=== PATIENT | male | born 1940 | race Caucasian/White ===

== ENCOUNTER 2016-08-17 06:06 | Inpatient (IN) ==
[2016-08-14 14:40] LABS: Basophils # (Auto) 0 K/mcL (0.0-0.3); Basophils % (Auto) 0.4 % (0.0-2.0); Eosinophils # (Auto) 0.3 K/mcL (0.0-0.7); Eosinophils % (Auto) 3.1 % (0.0-7.0); Granulocytes % (Auto) 78.4 % (38.0-78.0); Lymphocytes # (Auto) 0.9 K/mcL (1.5-4.8); Lymphocytes % (Auto) 11.2 % (15.5-49.0); Mean Cell Volume 92.7 fL (80.0-100.0); Mean Corpuscular HGB Conc 32.8 g/dL (31.0-36.0); Mean Corpuscular Hemoglobin 30.4 pg (26.0-34.0); Monocytes # (Auto) 0.6 K/mcL (0.1-0.9); Monocytes % (Auto) 6.9 % (1.0-12.0); Platelet Count 197 K/mcL (140-440); RBC 4.55 M/mcL (4.50-5.90); Red Cell Distribution Width 15.8 % (11.5-14.5)
[2016-08-15 16:45] LABS: Appearance,Urine CLEAR; Bilirubin,Urine NEG (NEG); Color,Urine STRAW; Glucose,Urine (UA) NEGATIVE (NEG); Leukocyte Esterase,Urine NEG /uL (NEG); Nitrate,Urine NEG (NEG); Protein,Urine NEG (NEG); Specific Gravity,Urine 1.006 (1.000-1.035); Urine Blood NEG mg/dL (<0.03); Urobilinogen,Urine NEG (NEG)
[2016-08-15 18:44] LABS: Blood Urea Nitrogen 16 mg/dl (8-23)
[~2016-08-17 06:06] MED LIST: ACETAMINOPHEN 500 MG TABLET PO SCH; CELECOXIB 200 MG CAPSULE PO SCH; PREGABALIN 150 MG CAPSULE PO SCH; ceFAZolin 1 GM VIAL IV SCH; oxyCODONE 10 MG TAB.ER.12H PO SCH
[2016-08-17] MEDS ORDERED: MIDAZOLAM 5 MG/5 ML VIAL IV ONE (09:05)
[2016-08-17] MEDS ORDERED: KETAMINE 100 MG/ML ML IV ONE (09:05)
[2016-08-17] MEDS ORDERED: ONDANSETRON 4 MG/2 ML VIAL IV ONE (09:05)
[2016-08-17] MEDS ORDERED: PROPOFOL 200 MG/20 ML VIAL IV ONE (09:05)
[2016-08-17] MEDS ORDERED: PHENYLEPHRINE 10 MG/ML VIAL IJ ONE (09:05)
[2016-08-17] MEDS ORDERED: GLYCOPYRROLATE 0.2 MG/ML VIAL IV ONE (09:05)
[2016-08-17] MEDS ORDERED: LIDOCAINE HCL/PF 100 MG/5 ML SYRINGE IV ONE (09:05)
[2016-08-17] MEDS ORDERED: ATROPINE SULFATE 0.4 MG/ML VIAL IV ONE (09:05)
[2016-08-17] MEDS ORDERED: TRANEXAMIC ACID 1,000 MG/10 ML VIAL IV ONE (09:05)
[2016-08-17] MEDS ORDERED: GENTAMICIN SULFATE 800 MG/20 ML VIAL IR ONE (09:30)
[2016-08-17] MEDS ORDERED: ACETAMINOPHEN 1,000 MG/100 ML BOTTLE IV SCH (12:00)
[2016-08-17] MEDS ORDERED: IPRATROPIUM/ALBUTEROL 3 ML AMPUL.NEB NEB PRN (12:17)
[2016-08-17] MEDS ORDERED: HYDROmorphone 2 MG/ML SYRINGE IV PRN ×2 (12:17→13:36)
[2016-08-17] MEDS ORDERED: BENZOCAINE/MENTHOL 1 LOZENGE PO PRN (12:17)
[2016-08-17] MEDS ORDERED: ONDANSETRON 4 MG/2 ML VIAL IV PRN ×2 (12:17→13:36)
[2016-08-17] MEDS ORDERED: METHOCARBAMOL 1,000 MG/10 ML VIAL IV PRN (12:17)
[2016-08-17] MEDS ORDERED: MEPERIDINE 25 MG/ML SYRINGE IV PRN (12:17)
[2016-08-17] MEDS ORDERED: fentaNYL 100 MCG/2 ML VIAL IV PRN (12:17)
[2016-08-17] MEDS ORDERED: MAGNESIUM HYDROXIDE 30 ML ORAL.SUSP PO PRN (13:36)
[2016-08-17] MEDS ORDERED: KETOROLAC 15 MG/ML VIAL IV PRN (13:36)
[2016-08-17] MEDS ORDERED: BISACODYL 10 MG SUPP.RECT PR PRN (13:36)
[2016-08-17] MEDS ORDERED: POLYETHYLENE GLYCOL 3350 17 GM PACKET PO PRN (13:36)
[2016-08-17] MEDS ORDERED: TRANEXAMIC ACID 1,000 MG/10 ML VIAL IV SCH (13:36)
[2016-08-17] MEDS ORDERED: FLEETS ADULT ENEMA PR PRN (13:36)
[2016-08-17] MEDS ORDERED: ACETAMINOPHEN 325 MG TABLET PO PRN (13:36)
--- NOTE | 2016-08-17 13:42 | Brief Operative Note ---
Date of procedure: 08/17/16 Pre-op diagnosis: right hip loosening femoral cement mantal Post-op diagnosis: same Procedure: right total hip revision of the femoral stem and head none Grafts/Implants: Yes Anesthesia: GETA Findings: severe loosening Complications: none Complications Description: 08/17/16 13:42 none Surgeon: Rafy Zhang Metal Moulder: Jose L Brito Estimated blood loss (cc): 300 Specimens Removed/Pathology: none sent Condition: stable Disposition: PACU
--- NOTE | 2016-08-17 13:56 | Operative Note ---
DATE OF OPERATION: 08/17/2016 PREOPERATIVE DIAGNOSIS: Right hip femoral pain with loosened stem. POSTOPERATIVE DIAGNOSIS: Right hip femoral pain with loosened stem with the addition of some proximal cement debonding. PROCEDURE: Right femoral stem revision with neck and head length revision. SURGEON: Rafy Zhang MD PERSONAL ASSISTANT: Jose L Brito PA-C ANESTHESIA: General LMA anesthesia. COMPLICATIONS: None. ESTIMATED BLOOD LOSS: IMPLANTS: Anabaptist modular size 18 conical stem with a proximal body of 0, height with a +12 neck length with outer body 40 mm. DESCRIPTION OF PROCEDURE: Patient was brought to the operating room and put to sleep with general LMA anesthesia. Once asleep he was turned into a left lateral position. We confirmed the operative site and Kevin positioner was placed. We then made an incision through the prior scar and extended this distally and made this an incision through the IT and through the gluteus filemon, exposed the joint and released the capsule posteriorly, extended the incision distally over the osteotomy site. We then dislocated the hip and the stem was frankly loose. The stem was removed as well as the femoral head and ball. The cup was very stable. There were no signs of infection; no purulence. We irrigated thoroughly and then started to remove the cement. The distal portion of the cement was very difficult to remove because the plug distally was about 3 inches in total thickness. Drill bit was used. We then made an osteotomy that extended down to the distal tip of the cement mantle. We then removed the plug in the cement mantle. We then reamed up to the size 12. We implanted a 12 advent modular. We first tried a [address] was [address] too short. We then irrigated thoroughly. We placed our 18 advent modular stem, cabled the osteotomy site, trialed the proximal cone bodies. A 0 +10 were all trialed, +10 was about 10 mm too long with multiple images. We then trialed 0 cone conical proximal body with a +12 neck length. This was stable. We placed about 20 degrees of version into the stem. This was locked into place. We then put a +12 neck length and dual mobility ball. This was reduced, irrigated thoroughly. We closed the fascial layer with #2 Ethibond, closed the deeper layer of Luciana's fascia with #1 Vicryl and closed the skin with 2-0 Vicryl and then omero. The patient tolerated this well. Thorough irrigation performed. There was no complication. Total surgery time was about 3.5 hours. REJI:bk Job ID: [id number] Doc ID: [id number] Rafy Zhang MD
[2016-08-17] MEDS: LACTATED RINGERS 1,000 ML IV SCH ×2 (14:37→14:38)
--- NOTE | 2016-08-17 15:05 | XRay Report ---
HISTORY: Reason for Exam: post-op Total Hip FINDINGS: There is a well-positioned right total hip prosthesis. This has been revised since the prior exam done on 01/23/16. There is a focal cortical fracture along the medial side of the proximal shaft of the femur. The bone fragment is 0.6 x 3.4 cm in size. There are cerclage wires around the femur, above the level of the fracture. Patient has a pre-existing left hip prosthesis which appears normal. IMPRESSION: Well-positioned right hip prosthesis Interpreted and Authenticated by: Anastacio Patel 08/17/16
[2016-08-17] MEDS ORDERED: HETASTARCH 6% 30 GM/500 ML BAG IV ONE ×2 (15:32→15:34)
[2016-08-17] MEDS: 0.9 % SODIUM CHLORIDE 10 ML SYRINGE IV SCH ×2 (15:41→21:00)
[2016-08-17] MEDS: TORSEMIDE 10 MG TABLET PO SCH (15:52)
[2016-08-17] MEDS: ceFAZolin 1 GM VIAL IV SCH (17:07)
[2016-08-17] MEDS: POTASSIUM CHLORIDE 10 MEQ TABLET PO SCH (17:08)
[2016-08-17] MEDS: 0.45 % SODIUM CHLORIDE 1,000 ML IV SCH (17:56)
[2016-08-17] MEDS: ASPIRIN 325 MG ENTERIC COATED TABLET PO SCH (20:46)
[2016-08-17] MEDS: DOCUSATE SODIUM 100 MG CAPSULE PO SCH (20:46)
[2016-08-17] MEDS: SENNOSIDES 1 TABLET PO SCH (20:47)
[2016-08-17] MEDS: oxyCODONE 10 MG TAB.ER.12H PO SCH (21:00)
[2016-08-17] MEDS ORDERED: TEMAZEPAM 15 MG CAPSULE PO PRN (21:00)
[2016-08-17] MEDS: HYDROcodone/APAP 10/325MG TABLET PO PRN (22:28)
[2016-08-18] MEDS: ceFAZolin 1 GM VIAL IV SCH (00:58)
[2016-08-18] MEDS: 0.45 % SODIUM CHLORIDE 1,000 ML IV SCH ×3 (03:34→21:06)
[2016-08-18] MEDS: HYDROcodone/APAP 10/325MG TABLET PO PRN ×2 (03:52→12:32)
[2016-08-18] MEDS: 0.9 % SODIUM CHLORIDE 10 ML SYRINGE IV SCH ×3 (05:56→23:01)
--- NOTE | 2016-08-18 06:57 | Orthopedic Progress Note ---
Subjective Patient information: Note initiated : 08/18/16 at 6:56 am Service Date, if different from initiated Date: [] Patient: Jarred Villafana 75 y/o M admitted on 08/17/16 for Right Total Hip Arthroplasty Revision of Femoral . Chief Complaint: [Pt is stable this morning on post operative day 1 without any significant concerns or complaints. Patients vital signs have remained stable. Patients dressing is dry and exhibits a grossly intact neurovascular and neuromotor exam. Patients 10 point ROS is otherwise negative. ] Objective Vital signs: Vital Signs Temp Pulse Pulse Resp BP BP Pulse Ox 08/18/16 05:45 92 08/18/16 03:43 94 08/18/16 03:42 98.2 F 66 16 108/61 94 08/18/16 02:00 93 08/18/16 00:00 93 08/17/16 23:34 97.9 F 68 20 119/58 93 08/17/16 22:00 93 08/17/16 20:00 94 08/17/16 19:45 64 18 107/71 94 08/17/16 19:15 97.0 F L 61 18 97/57 91 08/17/16 18:22 120/74 100 08/17/16 17:18 55 L 20 118/69 97 08/17/16 17:17 96 08/17/16 16:55 121/76 99 08/17/16 16:30 123/76 95 08/17/16 16:25 99 08/17/16 16:20 109/56 08/17/16 16:15 110/68 99 08/17/16 16:10 112/67 99 08/17/16 16:06 106/62 100 08/17/16 16:05 99/56 98 08/17/16 16:00 107/53 99 08/17/16 15:55 94/59 100 08/17/16 15:40 89/52 100 08/17/16 15:25 121/75 91 08/17/16 14:44 52 L 19 97/55 96 08/17/16 14:29 53 L 20 110/60 97 08/17/16 14:10 56 L 18 135/69 95 08/17/16 13:53 97.3 F L 56 L 16 160/79 100 Intake and Output 08/17/16 08/18/16 08/18/16 21:59 05:59 13:59 Intake Total 513 / 513 2043 / 2043 Output Total 600 / 600 Balance 513 / 513 1443 / 1443 Intake: IV 513 / 513 963 / 963 Sodium Chloride 0.45% 1, 963 / 963 000 ml @ 100 mls/hr IV . Q10H [facility] Rx#:[id number] HESPAN 6% 30 gm In 500 ml 500 / 500 As IV .STK-MED ONE Rx#: [id number] Oral 1080 / 1080 Output: Void Amount 600 / 600 Straight 600 / 600 Other: Weight 352 lb Intake & Output: Intake & Output 08/17/16 08/18/16 08/18/16 21:59 05:59 13:59 Intake Total 513 / 513 2043 / 2043 Output Total 600 / 600 Balance 513 / 513 1443 / 1443 Weight 352 lb Intake: IV 513 / 513 963 / 963 Sodium Chloride 0.45% 1, 963 / 963 000 ml @ 100 mls/hr IV . Q10H [facility] Rx#:[id number] HESPAN 6% 30 gm In 500 ml 500 / 500 As IV .STK-MED ONE Rx#: [id number] Oral 1080 / 1080 Output: Void Amount 600 / 600 Straight 600 / 600 Incision: Yes healing Incision clean and dry: Yes Dressing: Yes clean, Yes dry Weight bearing status: as tolerated Neurological exam IM: Yes motor sensory intact, Yes neurovascular intact Extremities exam IM: Yes Foot pink and warm, Yes neurovascular intact - Labs CBC & BMP: 08/18/16 04:05 08/15/16 15:15 Labs: Orthopedic Labs 08/14/16 13:58 PT 12.7 INR 0.9 APTT 08/18/16 08/14/16 04:05 13:58 Hgb 13.8 Hct 31.4 L 42.2 Assessment and Plan (1) Hx of total hip arthroplasty Patient has been educated regarding wound care and dressings, follow up recommendations, and medication use. We will f/u with the patient within 2-3 weeks for wound check. Pt will be discharged likely Saturday with Home health. Status: Acute
--- NOTE | 2016-08-18 07:01 | Discharge Summary ---
Ortho Discharge - ANY - Patient Instructions Diet: Regular Diet Activity: activity as tolerated, weight bearing as tolerated Total Hip Protocol: Follow activity instructions as provided by Physical Therapy. Dressing Care: May shower in 3 days, Aquacel Ag - leave on for 5 days - Problem Maintenance (1) Hx of total hip arthroplasty Status: Acute - Follow Up Plan Disposition: Home Health Service Prognosis: Good Rehab Potential: Good I certify that the patient requires SNF services: No (However pt will require Home Health Services) Overall status at discharge: patient is progressing back to baseline - Orders For Discharge Prescriptions: RX: Aspirin [Ecotrin] 325 mg PO BID #60 tab.ec RX: Docusate Sodium [Colace] 100 mg PO BID #60 capsule RX: HYDROcodone/APAP 10/325MG [[place] 10/325Mg] 1 - 2 tab PO Q4HP PRN #75 tablet PRN Reason: Pain RX: Tamsulosin [Flomax] 0.4 mg PO DAILY #30 capsule
[2016-08-18] MEDS: TORSEMIDE 10 MG TABLET PO SCH ×2 (08:05→16:51)
[2016-08-18] MEDS: TAMSULOSIN 0.4 MG CAPSULE PO SCH (08:05)
[2016-08-18] MEDS: POTASSIUM CHLORIDE 10 MEQ TABLET PO SCH ×2 (08:06→17:34)
[2016-08-18] MEDS: ASPIRIN 325 MG ENTERIC COATED TABLET PO SCH ×2 (09:28→20:28)
[2016-08-18] MEDS: METOPROLOL SUCCINATE 50 MG TAB.XL.24H PO SCH (09:28)
[2016-08-18] MEDS: DOCUSATE SODIUM 100 MG CAPSULE PO SCH ×2 (09:29→20:28)
[2016-08-18] MEDS: oxyCODONE 10 MG TAB.ER.12H PO SCH ×2 (09:29→20:29)
[2016-08-18] MEDS: LOSARTAN 50 MG TABLET PO SCH (09:30)
[2016-08-18] MEDS: SENNOSIDES 1 TABLET PO SCH (21:06)
[2016-08-19] MEDS: HYDROcodone/APAP 10/325MG TABLET PO PRN ×2 (01:24→08:26)
[2016-08-19] MEDS: 0.45 % SODIUM CHLORIDE 1,000 ML IV SCH ×2 (05:18→16:11)
[2016-08-19] MEDS: 0.9 % SODIUM CHLORIDE 10 ML SYRINGE IV SCH ×3 (05:43→20:47)
--- NOTE | 2016-08-19 08:15 | Orthopedic Progress Note ---
Subjective Patient information: Note initiated : 08/19/16 at 8:13 am Service Date, if different from initiated Date: [] Patient: Jarred Villafana 75 y/o M admitted on 08/17/16 for Right Total Hip Arthroplasty Revision of Femoral . Chief Complaint: [less pain and no nausea and vomiting] Objective Vital signs: Vital Signs Temp Pulse Resp BP BP Pulse Ox 08/19/16 07:13 98.6 F 87 22 146/55 93 08/19/16 05:42 96 08/19/16 04:00 98.7 F 88 22 111/72 96 08/19/16 00:00 124/65 94 08/18/16 23:30 107/61 08/18/16 22:58 99.3 F 80 16 92/47 95 08/18/16 22:00 94 08/18/16 21:21 93 08/18/16 20:00 98.7 F 75 24 118/61 92 08/18/16 18:14 91 08/18/16 16:50 98.2 F 75 20 136/53 92 08/18/16 14:44 91 08/18/16 13:20 92 08/18/16 12:00 98.6 F 71 16 125/56 95 08/18/16 11:02 96 08/18/16 09:47 94 08/18/16 09:46 94 08/18/16 09:31 62 133/61 94 Intake and Output 08/18/16 08/19/16 08/19/16 21:59 05:59 13:59 Intake Total 550 / 550 800 / 800 Output Total 525 / 525 900 / 900 Balance -100 / -100 Intake: Oral 550 / 550 800 / 800 Output: Urine Catheter Amount 525 / 525 900 / 900 Other: Meal Dinner Percent of Meal Consumed 100% Intake & Output: Intake & Output 08/18/16 08/19/16 08/19/16 21:59 05:59 13:59 Intake Total 550 / 550 800 / 800 Output Total 525 / 525 900 / 900 Balance -100 / -100 Intake: Oral 550 / 550 800 / 800 Output: Urine Catheter Amount 525 / 525 900 / 900 Other: Meal Dinner Percent of Meal Consumed 100% Incision: Yes healing Incision clean and dry: Yes Dressing: Yes clean Weight bearing status: full Neurological exam IM: Yes oriented X3, Yes neurovascular intact Extremities exam IM: Yes Foot pink and warm (d/c tomorrow), Yes neurovascular intact - Labs CBC & BMP: 08/18/16 04:05 08/15/16 15:15 Labs: Orthopedic Labs 08/14/16 13:58 PT 12.7 INR 0.9 APTT 08/18/16 08/14/16 04:05 13:58 Hgb 13.8 Hct 31.4 L 42.2
[2016-08-19] MEDS: TAMSULOSIN 0.4 MG CAPSULE PO SCH (08:25)
[2016-08-19] MEDS: LOSARTAN 50 MG TABLET PO SCH (08:25)
[2016-08-19] MEDS: POTASSIUM CHLORIDE 10 MEQ TABLET PO SCH ×2 (08:26→17:30)
[2016-08-19] MEDS: TORSEMIDE 10 MG TABLET PO SCH ×2 (08:27→16:00)
[2016-08-19] MEDS: METOPROLOL SUCCINATE 50 MG TAB.XL.24H PO SCH (08:27)
[2016-08-19] MEDS: ASPIRIN 325 MG ENTERIC COATED TABLET PO SCH ×2 (09:21→20:47)
[2016-08-19] MEDS: DOCUSATE SODIUM 100 MG CAPSULE PO SCH ×2 (09:21→20:46)
[2016-08-19] MEDS: SULFAMETHOXAZOLE/TRIMETHOPRIM 1 TABLET PO SCH (10:31)
[2016-08-19] MEDS: BENZOCAINE/MENTHOL 1 LOZENGE PO PRN ×2 (17:26→19:12)
[2016-08-19] MEDS: SENNOSIDES 1 TABLET PO SCH (20:47)
[2016-08-20] MEDS: 0.45 % SODIUM CHLORIDE 1,000 ML IV SCH ×2 (00:13→10:19)
[2016-08-20] MEDS: BENZOCAINE/MENTHOL 1 LOZENGE PO PRN (03:42)
[2016-08-20] MEDS: 0.9 % SODIUM CHLORIDE 10 ML SYRINGE IV SCH ×2 (05:24→14:32)
[2016-08-20] MEDS: TORSEMIDE 10 MG TABLET PO SCH (07:37)
[2016-08-20] MEDS: POTASSIUM CHLORIDE 10 MEQ TABLET PO SCH (07:37)
--- NOTE | 2016-08-20 07:58 | Discharge Summary ---
Ortho Discharge - ANY - Patient Instructions Diet: Regular Diet Activity: activity as tolerated, weight bearing as tolerated Total Hip Protocol: Follow activity instructions as provided by Physical Therapy. Dressing Care: Aquacel Ag - leave on for 5 days Patient Education: Hydrocodone/Acetaminophen (By mouth), Total Hip Replacement (DC) Additional Instructions: Discharge Instructions: Do the exercises at home that physical therapy gave you. Home health will contact you to set up your initial visit. If you don't hear from them by the morning after your discharge, please contact Case management at [phone] Take your prescription to supervisor tunnel heading any medication or equipment (such as walker, crutches, toilet riser or C.P.M.) Wear comfortable clothing for your physical therapy. Activity as tolerated. No torso twisting. Weight bearing as tolerated. May shower in 3 days. If you have the Aquacel Ag dressing, leave in place for 5 days then remove. If dressing becomes soiled (turns black), remove and use gauze 4x4 dressing and silvasorb ointment and change daily. Keep incision clean and dry. To avoid constipation while taking any narcotic pain medication, take an over the counter stool softener/laxative. Return to ER for fever/chills, nausea and/or vomiting, shortness of breath, uncontrolled pain, signs of infection, unable to go to the bathroom, bleeding, redness, swelling Use your Cryocuff or ice packs as directed, on for 20 minutes at a time throughout the day. This and elevation will help with pain and swelling. Your prescriptions are with your discharge information. Some medications were electronically transmitted to your pharmacy of choice. - Problem Maintenance (1) Hx of total hip arthroplasty Status: Acute - Follow Up Plan Disposition: Xfer SNF Prognosis: Good Rehab Potential: Good I certify that the patient requires SNF services: Yes Overall status at discharge: patient is progressing back to baseline - Orders For Discharge Prescriptions: Aspirin [Ecotrin] 325 mg PO BID #60 tab.ec Docusate Sodium [Colace] 100 mg PO BID #60 capsule HYDROcodone/APAP 10/325MG [[place] 10/325Mg] 1 - 2 tab PO Q4HP PRN #75 tablet PRN Reason: Pain Tamsulosin [Flomax] 0.4 mg PO DAILY #30 capsule Additional Discharge Orders: Physical Therapy at Discharge - ANY Location: Determined By Patient Toilet Riser Discharge Order Location: Determined By Patient Walker Location: Determined By Patient
[2016-08-20] MEDS: SULFAMETHOXAZOLE/TRIMETHOPRIM 1 TABLET PO SCH (09:40)
[2016-08-20] MEDS: DOCUSATE SODIUM 100 MG CAPSULE PO SCH (09:40)
[2016-08-20] MEDS: METOPROLOL SUCCINATE 50 MG TAB.XL.24H PO SCH (09:41)
[2016-08-20] MEDS: TAMSULOSIN 0.4 MG CAPSULE PO SCH (09:41)
[2016-08-20] MEDS: ASPIRIN 325 MG ENTERIC COATED TABLET PO SCH (09:41)
[2016-08-20] MEDS: LOSARTAN 50 MG TABLET PO SCH (09:41)
[2016-08-20] MEDS: HYDROcodone/APAP 10/325MG TABLET PO PRN (14:32)
== END 2016-08-20 14:30 ==
LOC: MEDSUR 06:06
PROVIDERS: ADMIT Orthopaedic Surgery; ATTEND Orthopaedic Surgery

== ENCOUNTER 2020-04-01 14:44 | Inpatient (IN) ==
--- NOTE | 2020-04-01 15:27 | Emergency Department Note ---
Extremity Problem HPI General Chief complaint: Extremity Problem,Nontraumatic Stated complaint: unheeling wounds Time Seen by Provider: 04/01/20 14:51 Source: patient and RN notes reviewed Mode of arrival: ambulatory Limitations: no limitations History of Present Illness HPI Narrative: Narrative: 79-year-old male patient referred to the emergency department from the wound care clinic for evaluation and potential admission to the hospital. Patient is being followed by the nuclear weapons mechanical specialist (Dr. Wharton) for nonhealing calcaneal. Patient mentions these have been present for over 3 weeks. The nuclear weapons mechanical specialist is tried multiple outpatient modalities to help clear these. Most recently has been using debridement as well as topical antibiotics. A review of the wound care documentation indicates that the patient is for distinct wounds to his lower extremities. The greatest detail would be his calcaneal ulcerations. The right calcaneal wound has grown from 1.8 x 2.6 x 0.1 measured on 03/25 to 2.5 x 2.5 x 0.1. The left calcaneal wound has grown considerably from 0.5 x 0.9 x 0.05 on 03/25 to 4.5 x 5.5 x 0.3. The nuclear weapons mechanical specialist is concerned if the patient treatment and likely would benefit from a standing facility for aggressive surgical management. Upon arrival to the emergency department, patient denies considerable pain. He does mention that his heels began to ache when he is up walking around for extended period of time. He denies history of diabetes. He does mention a hi story of chronic lymphedema. There is question of ongoing peripheral vascular disease. Patient denies history of DVT. ROS: Denies systemic illness, fever, sweats, chills. Denies runny nose, sinus congestion, or cough. Denies shortness of breath. Denies retrosternal chest pain or palpitations. Denies abdominal pain, nausea, vomiting, or diarrhea. Denies dysuria, hematuria, urinary frequency, or urinary urgency. Denies generalized or focal weakness. Related Data Previous Rx's Medication Instructions Recorded potassium chloride 10 mEq See Rx Instructions .ROUTE 02/10/20 tablet,extended release .COMPLEX #180 tab metoprolol succinate 50 mg 50 mg PO QDAY #90 tab 02/17/20 tablet,extended release 24 hr torsemide 20 mg tablet 20 mg PO BID #180 tab 10/28/20 Allergies Allergy/AdvReac Type Severity Reaction Status Date / Time doxycycline Allergy Mild Itching Verified 02/17/20 10:41 Review of Systems ROS ROS Narrative: Narrative: All systems ED: reviewed and negative except as stated. PFSH Narrative Patient History Narrative: Narrative: Medical/Surgical/Family History All Active Problems (Updated 04/01/20 @ 17:55 by Alessandro Smiley PA-C) Cellulitis (Acute) Non-healing ulcer of right foot (Acute) Non-healing ulcer of left foot (Acute) Lymphedema (Acute) Medicare annual wellness visit, subsequent (Acute) Influenza vaccine refused (Chronic) Aortic valve calcification (Chronic) Aortic stenosis (Chronic) Hx of total hip arthroplasty (Acute) HTN (hypertension) (Acute) Bilateral lower extremity edema (Acute) Medical History (Updated 04/01/20 @ 17:55 by Alessandro Smiley PA-C) Lymphedema (Acute) Medicare annual wellness visit, subsequent (Acute) Non-healing ulcer of left foot (Acute) Non-healing ulcer of right foot (Acute) UTI (urinary tract infection) (Acute) Surgical History H/O knee surgery (Acute) right knee H/O neck surgery (Acute) #4,#5 History of carpal tunnel surgery (Acute) Left hand History of colonoscopy (Chronic 08/02/17) Hx of total hip arthroplasty (Acute) Hx of transurethral resection of prostate (Acute) Social History Smoking Status: Former smoker Alcohol Intake Frequency: 0-2 drinks per day Substance Use: does not use Exam Narrative Narrative: Narrative: General Limitations: no limitations General appearance: Present other (Well-developed, well-nourished, morbidly obese 79-year-old male patient sitting upright in no acute distress. He is afebrile, hypertensive blood pressure 175/67, his other vital signs are normal.) Head Head: Present normocephalic Eye Eye: Present normal appearance, PERRL and EOMI; Absent scleral icterus and conjunctival injection ENT ENT: Present normal oropharynx and mucous membranes moist Neck Neck: Present trachea midline; Absent lymphadenopathy and thyromegaly Chest Chest: Present symmetric chest wall rise Respiratory Respiratory: Present normal lung sounds bilaterally; Absent respiratory distress, wheezes, stridor, accessory muscle use and prolonged expiratory phase Cardiovascular Cardiovascular: Present regular rate and normal rhythm; Absent systolic murmur and diastolic murmur Adbominal Abdominal: Present soft; Absent distention, tenderness, guarding, rebound, rigidity, organomegaly and mass Extremities Extremities: Present full ROM, normal capillary refill and pedal edema (+12 pitting edema appears to extend up into the knees.); Absent normal inspection (Both lower legs have been dressed by the wound care center with Kerlix and Bjorn wraps. These were noted to be clean and dry. That he dressings were left in place. Feet are royal red. Some exposed skin is scaly in appearance.), tenderness and calf tenderness Back Back: Present normal inspection and full ROM Neurological Neurological: Present alert, oriented X3, normal gait (Ambulates with a slow, shuffling gait using 2 canes.) and motor sensory deficit (Some decrease sensation to both feet.) Psychiatric Psychiatric: Present normal affect and normal mood Skin Skin: Present warm (WNL), dry and normal color Course Course Course Narrative: Patient was referred to the emergency department from the wound care clinic for further evaluation and possible admission to the hospital. She had treatment rendered at the wound care clinic and those dressings were kept in place. I am going to order some screening laboratory studies and repeat radiographs of both the patient's feet looking for evidence of osteomyelitis. Patient is not in considerable pain and does not require aggressive analgesia. Patient is afebrile and nonseptic appearing. We will wait for the results of testing prior to initiating any antibiotic therapy. Reevaluation(s) Reevaluation #1: A review the patient's diagnostics of the following: CBC WBC 10.7, RBC 4.39, hemoglobin 13.4, mag 40.9, platelets 254. Lactic acid 0.9. CMP chloride 95, glucose 112, all others normal limits. Procalcitonin 0.12. Radiographs of both feet showing no plain film evidence for osteomyelitis. Radiologist does mention bilateral metatarsus primus versus and hallux valgus deformities. There is also bilateral hammertoe deformities. Upon reevaluation patient is resting comfortably on emergency room gurney. After reviewing all the data I reached out to our hospitalist (Dr. Patten) about possibly admitting this patient for nonhealing bilateral skin ulcers. Time: 17:27 Reevaluation #2: The hospitalist (Dr. Patten) make contact with my collaborating physician (Dr. Cervantes) and they discussed the case at length. At this time Dr. Patten did mention he would like to admit the patient here for observation. During which time the nuclear weapons mechanical specialist (Dr. Wharton) will consult in for wound management. I discussed antimicrobial therapy with my collaborating physician at this time is decided to start the patient on Rocephin 2 g IV. Knowing the treatment plan, I discussed this with the patient who verbalized understanding. At this time patient is going to be admitted to the hospitalist for observation. All further treatment decisions, modalities, and ultimate patient disposition of be carried out by the hospitalist. Vital Signs Vital signs: Vital Signs Temperature 97.8 F 04/01/20 14:46 Pulse Rate 74 04/01/20 14:46 Respiratory Rate 16 04/01/20 14:46 Blood Pressure 175/67 04/01/20 14:46 Pulse Oximetry (%) 97 04/01/20 14:46 Temperature 97.8 F 04/01/20 14:46 Pulse Rate 70 04/01/20 18:12 Respiratory Rate 18 04/01/20 18:12 Blood Pressure 131/78 04/01/20 18:12 Pulse Oximetry (%) 94 04/01/20 17:20 MDM MDM Narrative Medical decision making narrative: Narrative: Lab Data Lab results reviewed: Yes I reviewed the patient's lab results. Result diagrams: 04/01/20 15:32 04/01/20 15:32 Labs: Lab Results 04/01/20 04/01/20 04/01/20 Range/Units 15:32 15:32 15:32 WBC 10.7 (4.5-11.0) K/mcL RBC 4.39 L (4.50-5.90) M/mcL Hgb 13.4 L (13.5-16.5) g/dL Hct 40.9 L (41.0-55.0) % MCV 93.2 (80.0-100.0) fL MCH 30.5 (26.0-34.0) pg MCHC 32.8 (31.0-36.0) g/dL RDW 13.4 (11.5-14.5) % Plt Count 254 (140-440) K/mcL MPV 9.0 (7.4-10.4) fL Neut % (Auto) 80.8 H (38.0-78.0) % Lymph % (Auto) 8.8 L (15.0-49.0) % [place] % (Auto) 8.0 (1.0-12.0) % Eos % (Auto) 1.9 (0.0-7.0) % Baso % (Auto) 0.5 (0.0-2.0) % Lymph # (Auto) 0.94 L (1.50-4.80) K/mcL [place] # (Auto) 0.86 (0.10-0.90) K/mcL Eos # (Auto) 0.20 (0.00-0.70) K/mcL Baso # (Auto) 0.05 (0.00-0.20) K/mcL Absolute Neutrophils 8.65 H (1.80-8.00) K/mcL VBG Lactic Acid 0.9 (0.5-2.0) mmol/L Sodium 135 (133-145) mmol/L Potassium 3.8 (3.3-5.1) mmol/L Chloride 95 L (96-108) mmol/L Carbon Dioxide 30 (22-30) mmol/L Anion Gap 10.0 (8.0-16.0) BUN 12 (8-23) mg/dL Creatinine 0.8 (0.7-1.2) mg/dL GFR Calculation 85 Glucose 112 H (70-105) mg/dL Calcium 8.9 (8.6-10.4) mg/dL Total Bilirubin 0.5 (0.1-1.0) mg/dL AST 27 (<40) U/L ALT 25 (<40) U/L Alkaline Phosphatase 101 (39-117) U/L Total Protein 6.7 (5.9-8.4) gm/dL Albumin 3.3 (3.2-5.2) gm/dL Globulin 3.4 (2.2-3.7) gm/dL Albumin/Globulin Ratio 1.0 (1.0-2.3) Procalcitonin (<0.10) ng/mL 04/01/20 Range/Units 15:32 WBC (4.5-11.0) K/mcL RBC (4.50-5.90) M/mcL Hgb (13.5-16.5) g/dL Hct (41.0-55.0) % MCV (80.0-100.0) fL MCH (26.0-34.0) pg MCHC (31.0-36.0) g/dL RDW (11.5-14.5) % Plt Count (140-440) K/mcL MPV (7.4-10.4) fL Neut % (Auto) (38.0-78.0) % Lymph % (Auto) (15.0-49.0) % [place] % (Auto) (1.0-12.0) % Eos % (Auto) (0.0-7.0) % Baso % (Auto) (0.0-2.0) % Lymph # (Auto) (1.50-4.80) K/mcL [place] # (Auto) (0.10-0.90) K/mcL Eos # (Auto) (0.00-0.70) K/mcL Baso # (Auto) (0.00-0.20) K/mcL Absolute Neutrophils (1.80-8.00) K/mcL VBG Lactic Acid (0.5-2.0) mmol/L Sodium (133-145) mmol/L Potassium (3.3-5.1) mmol/L Chloride (96-108) mmol/L Carbon Dioxide (22-30) mmol/L Anion Gap (8.0-16.0) BUN (8-23) mg/dL Creatinine (0.7-1.2) mg/dL GFR Calculation Glucose (70-105) mg/dL Calcium (8.6-10.4) mg/dL Total Bilirubin (0.1-1.0) mg/dL AST (<40) U/L ALT (<40) U/L Alkaline Phosphatase (39-117) U/L Total Protein (5.9-8.4) gm/dL Albumin (3.2-5.2) gm/dL Globulin (2.2-3.7) gm/dL Albumin/Globulin Ratio (1.0-2.3) Procalcitonin 0.12 H (<0.10) ng/mL Radiology Data Radiology results reviewed: Yes I reviewed the patient's radiology results. Radiology results narrative: Ordering Physician: Alessandro Smiley PA-C Date of Service: 04/01/20 Procedure(s): XR foot comp BI 3V Accession Number(s): [id number] INDICATION: Worsening bilateral calcaneal ulcers. R/o osteo. TECHNIQUE: AP, oblique, lateral bilateral feet COMPARISON: Previous examination dated 03/25/2020 FINDINGS: Left foot: There is metatarsus prima stress and hallux valgus deformity. Metatarsal phalangeal angle measures 31 degrees. There is degenerative joint disease at the 1st metatarsal phalangeal joint. There are 2nd through 5th hammertoe deformities. No acute fracture. Patient has a history of calcaneal ulcer. No soft tissue gas or radiopaque foreign body. No evidence for calcaneal osteomyelitis. There is no cortical destruction. Right foot: Metatarsus premise varus and hallux valgus deformity. Metatarsal phalangeal angle measures 26 degrees. There is severe degenerative joint disease at the 1st metatarsal phalangeal joint. There are are 2nd through 5th hammertoe deformities. No acute fracture. Patient has history of calcaneal ulcer. No soft tissue gas or radiopaque foreign body identified. There is no cortical destruction. No evidence for calcaneal osteomyelitis. IMPRESSION: 1. No plain film evidence for osteomyelitis. 2. Bilateral metatarsus primus versus and hallux valgus deformities. Bilateral hammertoe deformities. Interpreted and Authenticated by: Jg Spann 04/01/20 Discharge Plan Patient/Caregiver Discharge Instructions Pt seen by CUTTING SUPERVISOR/PA only: Yes Clinical Impression: Lymphedema Non-healing ulcer of right foot Qualifiers: Non-pressure ulcer stage: with fat layer exposed Qualified Code(s): L97.512 - Non-pressure chronic ulcer of other part of right foot with fat layer exposed Non-healing ulcer of left foot Qualifiers: Non-pressure ulcer stage: with fat layer exposed Qualified Code(s): L97.522 - Non-pressure chronic ulcer of other part of left foot with fat layer exposed Cellulitis Qualifiers: Site of cellulitis: extremity Site of cellulitis of extremity: lower extremity Laterality: unspecified laterality Qualified Code(s): L03.119 - Cellulitis of unspecified part of limb Patient Disposition: Xfer As Outpt/Obs ([facility]) Condition: Fair Discharge Date/Time: 04/01/20 19:27 Discharge Location: [facility]
--- NOTE | 2020-04-01 15:54 | XRay Report ---
INDICATION: Worsening bilateral calcaneal ulcers. R/o osteo. TECHNIQUE: AP, oblique, lateral bilateral feet COMPARISON: Previous examination dated 03/25/2020 FINDINGS: Left foot: There is metatarsus prima stress and hallux valgus deformity. Metatarsal phalangeal angle measures 31 degrees. There is degenerative joint disease at the 1st metatarsal phalangeal joint. There are 2nd through 5th hammertoe deformities. No acute fracture. Patient has a history of calcaneal ulcer. No soft tissue gas or radiopaque foreign body. No evidence for calcaneal osteomyelitis. There is no cortical destruction. Right foot: Metatarsus premise varus and hallux valgus deformity. Metatarsal phalangeal angle measures 26 degrees. There is severe degenerative joint disease at the 1st metatarsal phalangeal joint. There are are 2nd through 5th hammertoe deformities. No acute fracture. Patient has history of calcaneal ulcer. No soft tissue gas or radiopaque foreign body identified. There is no cortical destruction. No evidence for calcaneal osteomyelitis. IMPRESSION: 1. No plain film evidence for osteomyelitis. 2. Bilateral metatarsus primus versus and hallux valgus deformities. Bilateral hammertoe deformities. Interpreted and Authenticated by: Jg Spann 04/01/20
[2020-04-01 16:34] LABS: Basophils # (Auto) 0.05 K/mcL (0.00-0.20); Basophils % (Auto) 0.5 % (0.0-2.0); Eosinophils % (Auto) 1.9 % (0.0-7.0); Hematocrit 40.9 % (41.0-55.0); Hemoglobin 13.4 g/dL (13.5-16.5); Lymphocytes # (Auto) 0.94 K/mcL (1.50-4.80); Lymphocytes % (Auto) 8.8 % (15.0-49.0); Mean Cell Volume 93.2 fL (80.0-100.0); Mean Corpuscular HGB Conc 32.8 g/dL (31.0-36.0); Monocytes # (Auto) 0.86 K/mcL (0.10-0.90); Neutrophils % (Auto) 80.8 % (38.0-78.0); Platelet Count 254 K/mcL (140-440); RBC 4.39 M/mcL (4.50-5.90); Red Cell Distribution Width 13.4 % (11.5-14.5); WBC 10.7 K/mcL (4.5-11.0)
[2020-04-01 17:05] LABS: ALT/SGPT 25 U/L (<40); AST/SGOT 27 U/L (<40); Albumin 3.3 gm/dL (3.2-5.2); Alkaline Phosphatase 101 U/L (39-117); Bilirubin,Total 0.5 mg/dL (0.1-1.0); Blood Urea Nitrogen 12 mg/dL (8-23); Calcium 8.9 mg/dL (8.6-10.4); Carbon Dioxide 30 mmol/L (22-30); Chloride 95 mmol/L (96-108); Globulin 3.4 gm/dL (2.2-3.7); Glomerular Filtration Rate 85; Glucose 112 mg/dL (70-105)
--- NOTE | 2020-04-01 17:45 | Internal Med History&Physical ---
HPI History of Present Illness Patient information: Note initiated : 04/01/20 at 5:44 pm Service Date, if different from initiated Date: [] Patient: Jarred Villafana a 79 y/o M admitted on for heel wounds. Chief Complaint: Non healing leg ulcer History of present illness: Mr. Villafana is a 79 year old M history of chronic lymphedema/lipodermatosclerosis and has noted worsening with increasing weeping that has been progressive over the last month. He has been seeing wound care clinic for heel ulceration that has failed to improve despite outpatient treatment. He was referred to the ER for evaluation by health communications specialist Dr. Medeiros for hospitalization and management of nonhealing bilateral heel ulcer/diffuse lymphedema and cellulitis changes requiring antibiotics. Initial work-up in the ER was essentially unremarkable without signs of sepsis or hemodynamic instability however in light of nonhealing lower extremity ulcer and failed outpatient treatment hospital service was consulted for admission for continued wound care/ulcer management. Patient was started on empiric antibiotics after cultures were drawn At the time of my evaluation patient is alert and oriented. He was able to answer most of the questions. He denies recent trauma, exposure to sick contacts, fever chills but endorses lower extremity swelling that has worsened. He frequently uses compressive wraps which has failed to improve symptoms over the last couple of days. He has noted increasing weeping around his calf and ankles and worsening ulcer with increasing pain and redness along with swelling both foot. he denies chest pain, shortness of breath, fever, chills, rash Review of system 10 point review system was performed and is negative except for ones cussed PFSH PFSH All Active Problems (Updated 04/01/20 @ 17:55 by Alessandro Smiley PA-C) Cellulitis (Acute) Non-healing ulcer of right foot (Acute) Non-healing ulcer of left foot (Acute) Lymphedema (Acute) Medicare annual wellness visit, subsequent (Acute) Influenza vaccine refused (Chronic) Aortic valve calcification (Chronic) Aortic stenosis (Chronic) Hx of total hip arthroplasty (Acute) HTN (hypertension) (Acute) Bilateral lower extremity edema (Acute) Medical History (Updated 04/01/20 @ 17:55 by Alessandro Smiley PA-C) Lymphedema (Acute) Medicare annual wellness visit, subsequent (Acute) Non-healing ulcer of left foot (Acute) Non-healing ulcer of right foot (Acute) UTI (urinary tract infection) (Acute) Surgical History H/O knee surgery (Acute) right knee H/O neck surgery (Acute) #4,#5 History of carpal tunnel surgery (Acute) Left hand History of colonoscopy (Chronic 08/02/17) Hx of total hip arthroplasty (Acute) Hx of transurethral resection of prostate (Acute) Social History smoking status: Former smoker quit date: 05/13/97 pack-years: 25 alcohol intake frequency: 0-2 drinks per day substance use type: does not use MEDS/ALLERGIES Home Medications and Allergies Home Medications Medication Instructions Recorded Confirmed Type potassium chloride 10 mEq See Rx Instructions .ROUTE 02/10/20 04/01/20 Rx tablet,extended release .COMPLEX #180 tab metoprolol succinate 50 mg 50 mg PO QDAY #90 tab 02/17/20 04/01/20 Rx tablet,extended release 24 hr torsemide 20 mg tablet 20 mg PO BID #180 tab 02/17/20 04/01/20 Rx Allergies Allergy/AdvReac Type Severity Reaction Status Date / Time doxycycline Allergy Mild Itching Verified 04/01/20 19:50 EXAM Constitutional Vitals: Temp Pulse Resp BP Pulse Ox 97.8 F 70 16 148/69 94 04/01/20 14:46 04/01/20 17:20 04/01/20 17:20 04/01/20 17:20 04/01/20 17:20 Alert but anxious Head normocephalic Oral cavity moist No ear nose discharge Eye movement symmetrical Neck supple no lymphadenopathy S1-S2 regular Nonlabored breathing Nondistended nontender abdomen Bilateral lower extremity lymphedema/extensive exfoliation along with heel ulceration Skin otherwise no suspicious lesion Psych no hallucination Neuro normal higher function DATA Data Completed and Pending Labs: Labs from last 24 hours 04/01/20 04/01/20 04/01/20 15:32 15:32 15:32 WBC RBC Hgb Hct MCV MCH MCHC RDW Plt Count MPV Neut % (Auto) Lymph % (Auto) [place] % (Auto) Eos % (Auto) Baso % (Auto) Lymph # (Auto) [place] # (Auto) Eos # (Auto) Baso # (Auto) Absolute Neutrophils VBG Lactic Acid 0.9 Sodium 135 Potassium 3.8 Chloride 95 L Carbon Dioxide 30 Anion Gap 10.0 BUN 12 Creatinine 0.8 GFR Calculation 85 Glucose 112 H Calcium 8.9 Total Bilirubin 0.5 AST 27 ALT 25 Alkaline Phosphatase 101 Total Protein 6.7 Albumin 3.3 Globulin 3.4 Albumin/Globulin Ratio 1.0 Procalcitonin 0.12 H 04/01/20 15:32 WBC 10.7 RBC 4.39 L Hgb 13.4 L Hct 40.9 L MCV 93.2 MCH 30.5 MCHC 32.8 RDW 13.4 Plt Count 254 MPV 9.0 Neut % (Auto) 80.8 H Lymph % (Auto) 8.8 L [place] % (Auto) 8.0 Eos % (Auto) 1.9 Baso % (Auto) 0.5 Lymph # (Auto) 0.94 L [place] # (Auto) 0.86 Eos # (Auto) 0.20 Baso # (Auto) 0.05 Absolute Neutrophils 8.65 H VBG Lactic Acid Sodium Potassium Chloride Carbon Dioxide Anion Gap BUN Creatinine GFR Calculation Glucose Calcium Total Bilirubin AST ALT Alkaline Phosphatase Total Protein Albumin Globulin Albumin/Globulin Ratio Procalcitonin A/P Narrative A/P Narrative: * Bilateral chronic lower extremity lymphedema/nonhealing foot ulcer with early cellulitis. Nondiabetic. Wound care consulted. Initiated antibiotic coverage. Cultures obtained. lower extremity Doppler ultrasound to rule out PVD. * History of hypertension continue home dose of metoprolol * Bilateral lymphedema continue home dose torsemide * full code * prophylaxis Heparin Plan * Observation admit * Wound care consult * Duplex US * Antibiotic coverage * Pre-existing medical condition management home meds * Heel offloading/nutrition support/therapies Time Spent With Patient Time: Total time spent is greater than 50% in coordination of care (as documented) at patient's floor/unit and/or counseling patient:
[2020-04-01] MEDS ORDERED: cefTRIAXone 2 GM in DEXTROSE 5% IN WATER 50 ML IV ONE (17:46)
[2020-04-01] MEDS ORDERED: ACETAMINOPHEN 325 MG TABLET PO PRN (20:42)
[2020-04-01] MEDS ORDERED: VANCOMYCIN PER PHARMACY IV SCH (20:42)
[2020-04-01] MEDS ORDERED: guaiFENesin/CODEINE 10 ML UDC PO PRN (20:42)
[2020-04-01] MEDS ORDERED: POTASSIUM CHLORIDE 40 MEQ in DEXTROSE 5% IN WATER 500 ML IV PRN (20:42)
[2020-04-01] MEDS ORDERED: ONDANSETRON 4 MG/2 ML VIAL IV PRN (20:42)
[2020-04-01] MEDS ORDERED: MAGNESIUM SULFATE 2 GM/50 ML BAG IV PRN (20:42)
[2020-04-01] MEDS ORDERED: BISACODYL 10 MG SUPP.RECT PR PRN (20:42)
[2020-04-01] MEDS ORDERED: ACETAMINOPHEN 650 MG/65 ML BAG IV PRN (20:42)
[2020-04-01] MEDS ORDERED: ONDANSETRON 4 MG ODT TABLET SL PRN (20:42)
[2020-04-01] MEDS ORDERED: POLYETHYLENE GLYCOL 3350 17 GM PACKET PO PRN (20:42)
[2020-04-01] MEDS ORDERED: VANCOMYCIN 2,000 MG in 0.9 % SODIUM CHLORIDE 500 ML IV ONE (21:00)
[2020-04-01] MEDS: DOCUSATE SODIUM 100 MG CAPSULE PO SCH (22:50)
[2020-04-01] MEDS: SENNOSIDES/DOCUSATE SODIUM 1 TAB TABLET PO SCH (22:50)
[2020-04-01] MEDS: POTASSIUM CHLORIDE 10 MEQ TABLET PO SCH (22:50)
[2020-04-01] MEDS: HEPARIN 5,000 UNIT/ML VIAL SQ SCH (22:51)
[2020-04-01] MEDS: TORSEMIDE 10 MG TABLET PO SCH (22:52)
[2020-04-01] MEDS: 0.9 % SODIUM CHLORIDE 10 ML SYRINGE IV SCH (22:57)
[2020-04-02] MEDS: MELATONIN 3 MG TABLET PO PRN (02:34)
[2020-04-02] MEDS: 0.9 % SODIUM CHLORIDE 10 ML SYRINGE IV SCH ×3 (06:05→22:00)
[2020-04-02 07:00] LABS: Basophils # (Auto) 0.04 K/mcL (0.00-0.20); Basophils % (Auto) 0.4 % (0.0-2.0); Eosinophils # (Auto) 0.22 K/mcL (0.00-0.70); Eosinophils % (Auto) 2.5 % (0.0-7.0); Hematocrit 39.7 % (41.0-55.0); Mean Cell Volume 94.1 fL (80.0-100.0); Mean Corpuscular HGB Conc 32.7 g/dL (31.0-36.0); Mean Platelet Volume 8.9 fL (7.4-10.4); Monocytes # (Auto) 0.69 K/mcL (0.10-0.90); Monocytes % (Auto) 7.7 % (1.0-12.0); Neutrophils % (Auto) 80.4 % (38.0-78.0); Platelet Count 233 K/mcL (140-440); RBC 4.22 M/mcL (4.50-5.90); Red Cell Distribution Width 13.4 % (11.5-14.5); WBC 8.9 K/mcL (4.5-11.0)
[2020-04-02 08:00] LABS: ALT/SGPT 22 U/L (<40); AST/SGOT 23 U/L (<40); Alkaline Phosphatase 87 U/L (39-117); Bilirubin,Direct < 0.2 mg/dL (<0.3); Bilirubin,Total 0.5 mg/dL (0.1-1.0); Blood Urea Nitrogen 11 mg/dL (8-23); Calcium 8.6 mg/dL (8.6-10.4); Carbon Dioxide 30 mmol/L (22-30); Chloride 95 mmol/L (96-108); Globulin 3.1 gm/dL (2.2-3.7); Glomerular Filtration Rate 89; Glucose 127 mg/dL (70-105); Lactate Dehydrogenase 247 U/L (135-225); Phosphorous 2.9 mg/dL (2.5-4.5); Triglycerides 97 mg/dL (<150); Uric Acid 6.8 mg/dL (2.5-8.0)
[2020-04-02] MEDS: METOPROLOL SUCCINATE 50 MG TAB.XL.24H PO SCH (08:31)
[2020-04-02] MEDS: VANCOMYCIN 2,000 MG in 0.9 % SODIUM CHLORIDE 500 ML IV SCH ×2 (08:32→21:45)
[2020-04-02] MEDS: POTASSIUM CHLORIDE 10 MEQ TABLET PO SCH ×2 (08:52→17:38)
[2020-04-02] MEDS: DOCUSATE SODIUM 100 MG CAPSULE PO SCH ×2 (08:53→21:44)
[2020-04-02] MEDS: HEPARIN 5,000 UNIT/ML VIAL SQ SCH ×2 (08:54→21:44)
[2020-04-02] MEDS: MULTIVIT,THER IRON,CA,FA & MIN 1 TABLET PO SCH (08:55)
[2020-04-02] MEDS ORDERED: VANCOMYCIN 1,500 MG in 0.9 % SODIUM CHLORIDE 500 ML IV SCH (09:00)
[2020-04-02] MEDS: TORSEMIDE 10 MG TABLET PO SCH ×2 (09:00→21:44)
--- NOTE | 2020-04-02 11:36 | General Surgery Consult Note ---
HPI Data of Consult Primary Care Provider: Pj Stark M.D., F.A.A.FLemuelP. Consult Narrative Patient Information: Note initiated : 04/02/20 at 11:26 am Service Date, if different from initiated Date: [] Patient: Jarred Villafana 79 y/o M admitted on 04/01/20 for heel wounds. Chief Complaint: [] cc:: CC: Hao Cooney Patient is a 79 year old gentleman. Admitted to hospital after prior encounter at wound center earlier in the day and subsequent w/u in ER Patient is morbidly obese, lives by himself and has failed out patient treatment for exacerbation of chronic dermatitis of both legs and significant deterioration of bilateral heel plantar pressure ulcers with exposed adipose tissue and purulence. Currently has drainage of serous, odorous and purulent fluid. He NEEDS aggressive in house pretreatment of his wounds, followed by surgical ultra sound guided Versa Jet debridement and tissue cultures / biopsies. This is to be scheduled with Grocery Cashier for Saturday04/04/2020 afternoon. PFSH PFSH All Active Problems (Updated 04/02/20 @ 11:13 by Yung Medeiros MD) Abscess or cellulitis of foot (Acute) Foot ulcer with fat layer exposed (Acute) Cellulitis (Acute) Non-healing ulcer of right foot (Acute) Non-healing ulcer of left foot (Acute) Lymphedema (Acute) Medicare annual wellness visit, subsequent (Acute) Influenza vaccine refused (Chronic) Aortic valve calcification (Chronic) Aortic stenosis (Chronic) Hx of total hip arthroplasty (Acute) HTN (hypertension) (Acute) Bilateral lower extremity edema (Acute) Medical History (Updated 04/02/20 @ 11:13 by Yung Medeiros MD) Lymphedema (Acute) Medicare annual wellness visit, subsequent (Acute) Non-healing ulcer of left foot (Acute) Non-healing ulcer of right foot (Acute) UTI (urinary tract infection) (Acute) Surgical History H/O knee surgery (Acute) right knee H/O neck surgery (Acute) #4,#5 History of carpal tunnel surgery (Acute) Left hand History of colonoscopy (Chronic 08/02/17) Hx of total hip arthroplasty (Acute) Hx of transurethral resection of prostate (Acute) Social History smoking status: Former smoker quit date: 05/13/97 pack-years: 25 alcohol intake frequency: 0-2 drinks per day substance use type: does not use MEDS/ALLERGIES Home Medications and Allergies Home Medications Medication Instructions Recorded Confirmed Type potassium chloride 10 mEq See Rx Instructions .ROUTE 02/10/20 04/01/20 Rx tablet,extended release .COMPLEX #180 tab metoprolol succinate 50 mg 50 mg PO QDAY #90 tab 02/17/20 04/01/20 Rx tablet,extended release 24 hr torsemide 20 mg tablet 20 mg PO BID #180 tab 02/17/20 04/01/20 Rx Allergies Allergy/AdvReac Type Severity Reaction Status Date / Time doxycycline Allergy Mild Itching Verified 04/01/20 19:50 Physical Examination Vital Signs Vital signs: Temp Pulse Resp BP Pulse Ox 97.6 F 60 18 139/76 96 04/02/20 11:23 04/02/20 11:23 04/02/20 11:23 04/02/20 11:23 04/02/20 11:23 General physical appearance General physical exam: well developed, well nourished, no pain, chronically ill, obese and other (Poor balance. Ambulates with cane and FWW. ) Eyes Eye exam: PERRL and normal ocular movement ENT ENT exam: normal pinna, normal mucosa, no congestion and decreased hearing Head Head exam IM: Present atraumatic and normocephalic Neck Neck exam: no masses, trachea midline and no venous distension Cardiovascular Cardiovascular exam IM: Present normal rate and rhythm Respiratory Respiratory exam: normal expansion and clear to auscultation Abdomen Abdomen: Present soft, non tender and bowel sounds Integumentary Integumentary: Present other (Bilateral legs, feet, ankles and heels dermatitis and cellulitis . Plantar ulcers Stage 3 both foot heels. Adipose tissue exposed.) Neurologic Neurologic: Present other (Peripheral neuropathy) Musculoskeletal Musculoskeletal: Present other (For foot / toes weight bearing and ambulation with canes or FWW.) Psychiatric Psychiatric: Present oriented to time, oriented to person, oriented to place, s peech is normal and memory intact Additional Findings Additional exam: Failed out patient treatment of Dermatitis of both legs , ankles and feet. Plantar ulcers under both feet. Results Labs Result diagrams: 04/02/20 04:56 12/12/20 04:56 Labs: Abnormal lab results 04/01/20 04/01/20 04/01/20 Range/Units 15:32 15:32 15:32 RBC 4.39 L (4.50-5.90) M/mcL Hgb 13.4 L (13.5-16.5) g/dL Hct 40.9 L (41.0-55.0) % Neut % (Auto) 80.8 H (38.0-78.0) % Lymph % (Auto) 8.8 L (15.0-49.0) % Lymph # (Auto) 0.94 L (1.50-4.80) K/mcL Absolute Neutrophils 8.65 H (1.80-8.00) K/mcL Chloride 95 L (96-108) mmol/L Glucose 112 H (70-105) mg/dL Lactate Dehydrogenase (135-225) U/L Albumin (3.2-5.2) gm/dL Procalcitonin 0.12 H (<0.10) ng/mL 04/02/20 04/02/20 Range/Units 04:56 04:56 RBC 4.22 L (4.50-5.90) M/mcL Hgb 13.0 L (13.5-16.5) g/dL Hct 39.7 L (41.0-55.0) % Neut % (Auto) 80.4 H (38.0-78.0) % Lymph % (Auto) 9.0 L (15.0-49.0) % Lymph # (Auto) 0.80 L (1.50-4.80) K/mcL Absolute Neutrophils (1.80-8.00) K/mcL Chloride 95 L (96-108) mmol/L Glucose 127 H (70-105) mg/dL Lactate Dehydrogenase 247 H (135-225) U/L Albumin 3.0 L (3.2-5.2) gm/dL Procalcitonin (<0.10) ng/mL Diabetes panel 04/01/20 04/02/20 Range/Units 15:32 04:56 Sodium 135 133 (133-145) mmol/L Potassium 3.8 3.7 (3.3-5.1) mmol/L Chloride 95 L 95 L (96-108) mmol/L Carbon Dioxide 30 30 (22-30) mmol/L BUN 12 11 (8-23) mg/dL Creatinine 0.8 0.7 (0.7-1.2) mg/dL Glucose 112 H 127 H (70-105) mg/dL Calcium 8.9 8.6 (8.6-10.4) mg/dL AST 27 23 (<40) U/L ALT 25 22 (<40) U/L Alkaline Phosphatase 101 87 (39-117) U/L Total Protein 6.7 6.1 (5.9-8.4) gm/dL Albumin 3.3 3.0 L (3.2-5.2) gm/dL Triglycerides 97 (<150) mg/dL Calcium panel 04/01/20 04/02/20 Range/Units 15:32 04:56 Calcium 8.9 8.6 (8.6-10.4) mg/dL Phosphorus 2.9 (2.5-4.5) mg/dL Albumin 3.3 3.0 L (3.2-5.2) gm/dL Pituitary panel 04/01/20 04/02/20 Range/Units 15:32 04:56 Sodium 135 133 (133-145) mmol/L Potassium 3.8 3.7 (3.3-5.1) mmol/L Chloride 95 L 95 L (96-108) mmol/L Carbon Dioxide 30 30 (22-30) mmol/L BUN 12 11 (8-23) mg/dL Creatinine 0.8 0.7 (0.7-1.2) mg/dL Glucose 112 H 127 H (70-105) mg/dL Calcium 8.9 8.6 (8.6-10.4) mg/dL Adrenal panel 04/01/20 04/02/20 Range/Units 15:32 04:56 Sodium 135 133 (133-145) mmol/L Potassium 3.8 3.7 (3.3-5.1) mmol/L Chloride 95 L 95 L (96-108) mmol/L Carbon Dioxide 30 30 (22-30) mmol/L BUN 12 11 (8-23) mg/dL Creatinine 0.8 0.7 (0.7-1.2) mg/dL Glucose 112 H 127 H (70-105) mg/dL Calcium 8.9 8.6 (8.6-10.4) mg/dL Total Bilirubin 0.5 0.5 (0.1-1.0) mg/dL AST 27 23 (<40) U/L ALT 25 22 (<40) U/L Alkaline Phosphatase 101 87 (39-117) U/L Total Protein 6.7 6.1 (5.9-8.4) gm/dL Albumin 3.3 3.0 L (3.2-5.2) gm/dL All other labs normal. A/P Narrative A/P Narrative: Assessment: Failed out patient treatment for BILATERAL dermatitis of legs, anklles and feet with plantar heels pressure ulcer deterioration and cellulitis. Plan: Pre treatment with daily wound care / MIST treatments. OR Ultrasound guided Versa Jet debridement and tissue c/s -biopsy on Saturday04/04/2020 Plan discussed with Hospitalist Physician, Erin PRINCE and Flakita PrinceHandbag Frames Inspector. Time Spent With Patient Time: Total time spent is greater than 50% in coordination of care (as documented) at patient's floor/unit and/or counseling patient: Total time spent with greater than 50% in coordination of care (as documented) at patient's floor/unit and/or counseling patient:: Greater than 35 minutes
[2020-04-02] MEDS: cefTRIAXone 2 GM in DEXTROSE 5% IN WATER 50 ML IV SCH (12:46)
--- NOTE | 2020-04-02 13:28 | Ultrasound Report ---
INDICATION: Non healing wounds TECHNIQUE: Carpenter scale and color flow Doppler spectral imaging. Technically difficult and limited examination COMPARISON: None. FINDINGS: There is plaque within the common femoral arteries and superficial femoral arteries. No significant velocity elevation. No evidence for hemodynamically significant stenosis. No occlusion. Popliteal artery is patent bilaterally. No 50% or greater diameter stenosis. Anterior tibial arteries and posterior tibial arteries are patent. No hemodynamically significant stenosis or occlusion. The peroneal arteries are not visualized. IMPRESSION: 1. Limited evaluation. 2. No hemodynamically significant stenosis or occlusion Interpreted and Authenticated by: Jg Spann 04/02/20
[2020-04-02] MEDS: SENNOSIDES/DOCUSATE SODIUM 1 TAB TABLET PO SCH (21:44)
[2020-04-02] MEDS: BACITRACIN TOPICAL OINT 15 GM TUBE TOPICAL SCH (22:36)
[2020-04-03] MEDS: MELATONIN 3 MG TABLET PO PRN (02:27)
[2020-04-03] MEDS: 0.9 % SODIUM CHLORIDE 10 ML SYRINGE IV SCH ×3 (05:40→21:37)
[2020-04-03 06:42] LABS: Basophils # (Auto) 0.05 K/mcL (0.00-0.20); Basophils % (Auto) 0.6 % (0.0-2.0); Eosinophils # (Auto) 0.27 K/mcL (0.00-0.70); Eosinophils % (Auto) 3.1 % (0.0-7.0); Hematocrit 43.7 % (41.0-55.0); Hemoglobin 14.2 g/dL (13.5-16.5); Lymphocytes % (Auto) 9.1 % (15.0-49.0); Mean Cell Volume 94.2 fL (80.0-100.0); Mean Corpuscular HGB Conc 32.5 g/dL (31.0-36.0); Mean Platelet Volume 9.1 fL (7.4-10.4); Monocytes % (Auto) 6.8 % (1.0-12.0); Neutrophils % (Auto) 80.4 % (38.0-78.0); Platelet Count 260 K/mcL (140-440); RBC 4.64 M/mcL (4.50-5.90); Red Cell Distribution Width 13.4 % (11.5-14.5); WBC 8.8 K/mcL (4.5-11.0)
[2020-04-03 07:04] LABS: ALT/SGPT 25 U/L (<40); AST/SGOT 28 U/L (<40); Albumin/Globulin Ratio 0.9 (1.0-2.3); Alkaline Phosphatase 92 U/L (39-117); Bilirubin,Direct < 0.2 mg/dL (<0.3); Bilirubin,Total 0.4 mg/dL (0.1-1.0); Blood Urea Nitrogen 10 mg/dL (8-23); Calcium 8.1 mg/dL (8.6-10.4); Carbon Dioxide 29 mmol/L (22-30); Chloride 97 mmol/L (96-108); Globulin 3.5 gm/dL (2.2-3.7); Glomerular Filtration Rate 85; Glucose 124 mg/dL (70-105); Lactate Dehydrogenase 254 U/L (135-225); Phosphorous 2.7 mg/dL (2.5-4.5); Triglycerides 107 mg/dL (<150); Uric Acid 7.2 mg/dL (2.5-8.0)
[2020-04-03] MEDS: DOCUSATE SODIUM 100 MG CAPSULE PO SCH ×2 (08:12→21:37)
[2020-04-03] MEDS: HEPARIN 5,000 UNIT/ML VIAL SQ SCH ×2 (08:12→21:36)
[2020-04-03] MEDS: METOPROLOL SUCCINATE 50 MG TAB.XL.24H PO SCH (08:13)
[2020-04-03] MEDS: TORSEMIDE 10 MG TABLET PO SCH ×2 (08:13→15:19)
[2020-04-03] MEDS: BACITRACIN TOPICAL OINT 15 GM TUBE TOPICAL SCH ×2 (08:14→21:36)
[2020-04-03] MEDS: POTASSIUM CHLORIDE 10 MEQ TABLET PO SCH ×2 (08:14→16:48)
[2020-04-03] MEDS: MULTIVIT,THER IRON,CA,FA & MIN 1 TABLET PO SCH (08:15)
[2020-04-03] MEDS: cefTRIAXone 2 GM in DEXTROSE 5% IN WATER 50 ML IV SCH (08:15)
--- NOTE | 2020-04-03 09:14 | XRay Report ---
INDICATION: Interval Change TECHNIQUE: AP portable upright chest x-ray COMPARISON: Previous examination dated 05/01/2016 FINDINGS:Previous lower cervical anterior spinal fusion Lungs:Lungs are negative. No focal pulmonary parenchymal infiltrate or mass Heart, vascular:No significant cardiomegaly. Pulmonary vascularity is normal. No pulmonary edema or pulmonary congestion Mediastinum, guillermina:No mediastinal widening. No hilar mass Pleura:No pleural fluid. No pleural-based mass or calcification Skeletal:Negative. IMPRESSION: Negative AP chest x-ray Interpreted and Authenticated by: Jg Spann 04/03/20
[2020-04-03] MEDS: VANCOMYCIN 2,000 MG in 0.9 % SODIUM CHLORIDE 500 ML IV SCH ×2 (09:52→21:36)
--- NOTE | 2020-04-03 14:28 | Internal Med Progress Note ---
SUBJECTIVE Subjective Patient information: Note initiated : 04/03/20 at 2:18 pm Service Date, if different from initiated Date: [] Patient: Jarred Villafana 79 y/o M admitted on 04/01/20 for heel wounds. Chief Complaint: [bilateral heel wounds] Mr. Villafana is a 79 year old M history of chronic lymphedema/lipodermatosclerosis and has noted worsening with increasing weeping that has been progressive over the last month. He has been seeing wound care clinic for heel ulceration that has failed to improve despite outpatient treatment. He was referred to the ER for evaluation by credit card specialist Dr. Medeiros for hospitalization and management of nonhealing bilateral heel ulcer/diffuse lymphedema and cellulitis changes requiring antibiotics. Initial work-up in the ER was essentially unremarkable without signs of sepsis or hemodynamic instability however in light of nonhealing lower extremity ulcer and failed outpatient treatment hospital service was consulted for admission for continued wound care/ulcer management. Constitutional Vitals: Vital Signs Temp Pulse Resp BP Pulse Ox 98.2 F 89 20 142/68 90 04/03/20 12:00 04/03/20 12:00 04/03/20 12:00 04/03/20 12:00 04/03/20 12:00 Period Temp Pulse Resp BP Sys/Stewart Pulse Ox Last 24 Hr 97.5 F-98.2 F 60-89 - 112-145/63-71 90-95 Intake and Output 04/03/20 04/03/20 04/03/20 05:59 13:59 21:59 Intake Total 900 440 Output Total 1525 751 Balance -625 -311 Intake & Output: Intake & Output 04/03/20 04/03/20 04/03/20 05:59 13:59 21:59 Intake Total 900 440 Output Total 1525 751 Balance -625 -311 Intake: IV 500 Vancomycin 2,000 mg In Sodium 500 Chloride 0.9% 500 ml @ 250 mls/ hr IV Q12H [facility] Rx#:[id number] Oral 400 440 Output: Void Amount 1525 750 Urine/Stool Mix 1 Other: Meal Lunch Percent of Meal Consumed 75% Urine Appearance Clear Clear Urine Color Bright Yellow Bright Yellow Urine Odor Strong Stool Size Moderate Stool Color Brown Stool Consistency Watery Loose # Bowel Movements 1 # of times incontinent of 1 Bowels General appearance: obese Head Head exam: Present atraumatic and normal inspection Eye Eye exam: Present normal appearance; Absent scleral icterus Neck Neck exam: Present full ROM Respiratory Respiratory exam: Present normal respiratory exam Cardiovascular Cardiovascular exam: Present normal rate and rhythm GI/Abdominal GI/Abdominal exam: Present soft; Absent tenderness Extremities Exam Additional comments: Feet wrapped in YOLANDA bandages. Neurological Exam Neurological exam: Present CN II-XII intact and oriented X3 Psychiatric Psychiatric exam: Present normal mood OBJ DATA Labs CBC & Chem 7: 04/03/20 05:30 04/03/20 05:30 Labs: Abnormal Lab Results 04/03/20 04/03/20 04/02/20 05:30 05:30 04:56 RBC Hgb Hct Neut % (Auto) 80.4 H Lymph % (Auto) 9.1 L Lymph # (Auto) 0.80 L Absolute Neutrophils Chloride 95 L Glucose 124 H 127 H Calcium 8.1 L Lactate Dehydrogenase 254 H 247 H Albumin 3.0 L 3.0 L Albumin/Globulin Ratio 0.9 L Procalcitonin 04/02/20 04/01/20 04/01/20 04:56 15:32 15:32 RBC 4.22 L Hgb 13.0 L Hct 39.7 L Neut % (Auto) 80.4 H Lymph % (Auto) 9.0 L Lymph # (Auto) 0.80 L Absolute Neutrophils Chloride 95 L Glucose 112 H Calcium Lactate Dehydrogenase Albumin Albumin/Globulin Ratio Procalcitonin 0.12 H 04/01/20 15:32 RBC 4.39 L Hgb 13.4 L Hct 40.9 L Neut % (Auto) 80.8 H Lymph % (Auto) 8.8 L Lymph # (Auto) 0.94 L Absolute Neutrophils 8.65 H Chloride Glucose Calcium Lactate Dehydrogenase Albumin Albumin/Globulin Ratio Procalcitonin Meds: Medications Acetaminophen (Tylenol) 650 mg PO Q4-6HP PRN; Protocol PRN Reason: Per Pain Protocol/Fever > 101 Bacitracin (Bacitracin Topical Oint) 1 dose TOPICAL BID [facility] Last Admin: 04/03/20 08:14 Dose: 1 dose Documented by: Bisacodyl (Dulcolax) 10 mg TX Q2-3DAYS PRN PRN Reason: Constipation Docusate Sodium (Colace) 100 mg PO BID [facility] Last Admin: 04/03/20 08:12 Dose: 100 mg Documented by: Guaifenesin/Codeine Phosphate (Robitussin Ac) 10 ml PO Q4HP PRN PRN Reason: Cough Heparin Sodium (Porcine) (Heparin) 5,000 unit SQ Q12 [facility] Last Admin: 04/03/20 08:12 Dose: 5,000 unit Documented by: Ceftriaxone Sodium 2 gm/ (Dextrose) 50 mls @ 100 mls/hr IV DAILY [facility]; Protocol Last Admin: 04/03/20 08:15 Dose: 100 mls/hr Documented by: Potassium Chloride 40 meq/ (Dextrose) 520 mls @ 130 mls/hr IV UD PRN PRN Reason: K+ = or < 3.5 Acetaminophen (Ofirmev) 650 mg in 65 mls @ 130 mls/hr IV Q6HP PRN; Protocol PRN Reason: Per Pain Protocol/Fever > 101 Magnesium Sulfate (Magnesium Sulfate) 2 gm in 50 mls @ 50 mls/hr IV UD PRN PRN Reason: MG = or < 1.7 Vancomycin HCl 2,000 mg/ (Sodium Chloride) 500 mls @ 250 mls/hr IV Q12H [facility] Last Admin: 04/03/20 09:52 Dose: 250 mls/hr Documented by: Iron Carb/Multivit/Customer Acquisition Specialist/Folic Acid (Multivitamin W/Minerals) 1 tab PO DAILY [facility] Last Admin: 04/03/20 08:15 Dose: Not Given Documented by: Melatonin (Melatonin 3mg Tablet) 3 mg PO HSP PRN PRN Reason: Insomnia Last Admin: 04/03/20 02:27 Dose: 3 mg Documented by: Metoprolol Succinate (Toprol Xl) 50 mg PO QDAY [facility] Last Admin: 04/03/20 08:13 Dose: 50 mg Documented by: Ondansetron HCl (Zofran Odt) 4 mg SL Q4-6HP PRN; Protocol PRN Reason: Nausea And Vomiting Ondansetron HCl (Zofran) 4 mg IV Q4-6HP PRN; Protocol PRN Reason: Nausea And Vomiting Polyethylene Glycol (Miralax) 17 gm PO DAILYP PRN PRN Reason: Constipation Potassium Chloride (Kdur) 10 meq PO BIDCC [facility] Last Admin: 04/03/20 08:14 Dose: 10 meq Documented by: Senna/Docusate Sodium (Senna Plus Tablet) 1 tab PO HS [facility] Last Admin: 12/12/20 21:44 Dose: 1 tab Documented by: Sodium Chloride (Saline Flush) 10 ml IV Q8 [facility] Last Admin: 04/03/20 05:40 Dose: 10 ml Documented by: Torsemide (Demadex) 20 mg PO BIDD [facility] Last Admin: 04/03/20 08:13 Dose: 20 mg Documented by: Vancomycin HCl (Vancomycin Per Pharmacy) 1 order IV UD [facility]; Protocol A/P Narrative A/P Narrative: 79 year old male with chronic lymphedema admitted for bilateral heel wounds and mild cellulitis, started on antibiotics and surgery consulted. Hospital course has been uncomlicated. #Bilateral heel wounds #Cellulitis Plan is for debridement of wounds, likely tomorrow. Currently on Vancomycin IV and Ceftriaxone, likely deescalate to oral soon to complete 5-10 days for cellulitis. No evidence of osteomyelitis on xrays, no evidence of vascular insufficiency with arterial doppler. Check CRP, continue wounds cares. #Chronic lymphedema - on home torsemide and potassium supplement. #DVT prophylaxis - heparin SQ Time Spent With Patient Time: Total time spent is greater than 50% in coordination of care (as documented) at patient's floor/unit and/or counseling patient: Total time spent with greater than 50% in coordination of care (as documented) at patient's floor/unit and/or counseling patient:: 25 - 35 minutes QUALITY VTE Deep Vein Thrombosis/Pulmonary Embolism Present on Admission: No
[2020-04-03] MEDS: SENNOSIDES/DOCUSATE SODIUM 1 TAB TABLET PO SCH (21:37)
[2020-04-04] MEDS: 0.9 % SODIUM CHLORIDE 10 ML SYRINGE IV SCH ×3 (06:02→20:58)
[2020-04-04 06:47] LABS: Basophils # (Auto) 0.05 K/mcL (0.00-0.20); Basophils % (Auto) 0.6 % (0.0-2.0); Eosinophils # (Auto) 0.29 K/mcL (0.00-0.70); Eosinophils % (Auto) 3.7 % (0.0-7.0); Hematocrit 43.6 % (41.0-55.0); Lymphocytes % (Auto) 11.5 % (15.0-49.0); Mean Cell Volume 95.2 fL (80.0-100.0); Mean Corpuscular HGB Conc 32.1 g/dL (31.0-36.0); Mean Platelet Volume 8.8 fL (7.4-10.4); Monocytes # (Auto) 0.66 K/mcL (0.10-0.90); Monocytes % (Auto) 8.4 % (1.0-12.0); Neutrophils % (Auto) 75.8 % (38.0-78.0); Platelet Count 223 K/mcL (140-440); RBC 4.58 M/mcL (4.50-5.90); Red Cell Distribution Width 13.6 % (11.5-14.5); WBC 7.8 K/mcL (4.5-11.0)
[2020-04-04 07:18] LABS: ALT/SGPT 25 U/L (<40); AST/SGOT 31 U/L (<40); Albumin 2.8 gm/dL (3.2-5.2); Albumin/Globulin Ratio 0.8 (1.0-2.3); Alkaline Phosphatase 85 U/L (39-117); Bilirubin,Direct < 0.2 mg/dL (<0.3); Bilirubin,Total 0.3 mg/dL (0.1-1.0); Blood Urea Nitrogen 9 mg/dL (8-23); Calcium 8.3 mg/dL (8.6-10.4); Carbon Dioxide 29 mmol/L (22-30); Chloride 98 mmol/L (96-108); Globulin 3.5 gm/dL (2.2-3.7); Glomerular Filtration Rate 85; Glucose 109 mg/dL (70-105); Lactate Dehydrogenase 281 U/L (135-225); Phosphorous 2.7 mg/dL (2.5-4.5); Triglycerides 107 mg/dL (<150); Uric Acid 6.9 mg/dL (2.5-8.0)
[2020-04-04] MEDS: cefTRIAXone 2 GM in DEXTROSE 5% IN WATER 50 ML IV SCH (08:54)
[2020-04-04] MEDS: METOPROLOL SUCCINATE 50 MG TAB.XL.24H PO SCH (08:54)
[2020-04-04] MEDS: HEPARIN 5,000 UNIT/ML VIAL SQ SCH ×2 (09:22→20:55)
[2020-04-04] MEDS: POTASSIUM CHLORIDE 10 MEQ TABLET PO SCH ×2 (09:22→18:09)
[2020-04-04] MEDS: MULTIVIT,THER IRON,CA,FA & MIN 1 TABLET PO SCH (09:22)
[2020-04-04] MEDS: BACITRACIN TOPICAL OINT 15 GM TUBE TOPICAL SCH ×2 (09:23→19:56)
[2020-04-04] MEDS: DOCUSATE SODIUM 100 MG CAPSULE PO SCH ×2 (09:23→19:31)
[2020-04-04] MEDS: TORSEMIDE 10 MG TABLET PO SCH ×2 (09:23→18:09)
--- NOTE | 2020-04-04 09:23 | General Surgery Progress Note ---
SUBJECTIVE Subjective Patient information: Note initiated : 04/04/20 at 9:16 am Service Date, if different from initiated Date: [] Patient: Jarred Villafana 79 y/o M admitted on 04/01/20 for heel wounds. Chief Complaint: [] Additional PMFSH (Level 3 Only): Patient seen on morning rounds with nursing staff. Uneventful night. Nasal swab Positive for MRSA. Started on decolonization protocol. On OR schedule for debridement of both legs and feet and tissue biopsies and cultures from Plantar ulcers both feet. Constitutional Vitals: Vital Signs Temp Pulse Resp BP Pulse Ox 97.6 F 77 20 160/88 91 04/04/20 08:00 04/04/20 08:00 04/04/20 08:00 04/04/20 08:00 04/04/20 08:00 Period Temp Pulse Resp BP Sys/Stewart Pulse Ox Last 24 Hr 97.6 F-98.9 F 66-89 16-20 133-160/68-88 90-94 Intake and Output 04/03/20 04/04/20 04/04/20 21:59 05:59 13:59 Intake Total 450 2400 Output Total 900 2000 200 Balance -450 400 -200 Weight 350 lb 1.6 oz Intake & Output: Intake & Output 04/03/20 04/04/20 04/04/20 21:59 05:59 13:59 Intake Total 450 2400 Output Total 900 2000 200 Balance -450 400 -200 Weight 350 lb 1.6 oz Intake: Oral 450 2400 Output: Urine Catheter Amount 300 Void Amount 300 2000 200 Urine/Stool Mix 300 Other: Urine Appearance Clear Clear Urine Color Bright Yellow Bright Yellow Bright Yellow Urine Odor Strong Normal Strong Stool Size Smear Stool Color Brown Stool Consistency Watery Loose # of times incontinent of 1 Bowels Exam: AVSS. No changes MIRYAM. L/E both legs and feet wounds Clean wounds. Thick biofilm both plantar heels. For surgical debridement in OR later today. A/P Narrative A/P Narrative: Assessment: Progressing well. MRSA colonization of nares. On Decolonization protocol for MRSA. Plan: For OR surgical debridement and tissue c/s biopsies. Bilateral plantar pressure ulcers. Time Spent With Patient Time: Total time spent is greater than 50% in coordination of care (as documented) at patient's floor/unit and/or counseling patient: Total time spent with greater than 50% in coordination of care (as documented) a t patient's floor/unit and/or counseling patient:: less than 15 minutes
[2020-04-04] MEDS ORDERED: SCOPOLAMINE 1 PATCH PATCH TOPICAL PRN (11:00)
[2020-04-04] MEDS: VANCOMYCIN 1,500 MG in 0.9 % SODIUM CHLORIDE 500 ML IV SCH ×2 (11:37→20:58)
[2020-04-04] MEDS: VANCOMYCIN 2,000 MG in 0.9 % SODIUM CHLORIDE 500 ML IV SCH (12:03)
[2020-04-04] MEDS ORDERED: DEXAMETHASONE 10 MG/ML VIAL ONE (12:15)
[2020-04-04] MEDS ORDERED: KETAMINE 100 MG/ML ML ONE (12:15)
[2020-04-04] MEDS ORDERED: ePHEDrine 50 MG/ML AMPUL IV ONE (12:15)
[2020-04-04] MEDS ORDERED: ONDANSETRON 4 MG/2 ML VIAL ONE (12:15)
[2020-04-04] MEDS ORDERED: PROPOFOL 200 MG/20 ML VIAL IV ONE (12:15)
[2020-04-04] MEDS ORDERED: LIDOCAINE HCL/PF 100 MG/5 ML SYRINGE IV ONE (12:15)
[2020-04-04] MEDS ORDERED: GENTAMICIN SULFATE 800 MG/20 ML VIAL IR ONE (12:30)
[2020-04-04] MEDS: SILVER SULFADIAZINE CREAM.TOP 25GM TOPICAL SCH (12:40)
[2020-04-04] MEDS ORDERED: fentaNYL 100 MCG/2 ML VIAL IV PRN (12:46)
[2020-04-04] MEDS ORDERED: MEPERIDINE 25 MG/ML SYRINGE IV PRN (12:46)
[2020-04-04] MEDS ORDERED: PROMETHAZINE 25 MG/ML VIAL IV PRN (12:46)
[2020-04-04] MEDS ORDERED: IPRATROPIUM/ALBUTEROL 3 ML AMPUL.NEB NEB PRN (12:46)
[2020-04-04] MEDS ORDERED: ONDANSETRON 4 MG/2 ML VIAL IV PRN (12:46)
[2020-04-04] MEDS ORDERED: NALOXONE HCL 0.4 MG/ML VIAL IV PRN (12:46)
[2020-04-04] MEDS ORDERED: LACTATED RINGERS 250 ML IV PRN (12:46)
[2020-04-04] MEDS ORDERED: diphenhydrAMINE 50 MG/ML VIAL IV PRN (12:46)
[2020-04-04] MEDS ORDERED: LACTATED RINGERS 1,000 ML IV SCH (13:00)
--- NOTE | 2020-04-04 13:42 | Brief Operative Note ---
Brief Operative Note Date of procedure: 04/04/20 Pre-op diagnosis: Plantar ulcers both heels, Resolving cellulitis Dermatitis R/L Legs Post-op diagnosis: same Procedure: Debridement with pulse lavage irrigation. Tissue for c/s from plantar pressure ulcers both heels. Grafts/Implants: No Anesthesia: GLMA Findings: Morbid obese gentleman. Lymphedema both legs, Cellulitis / Dermatitis of legs and Plantar ( Heels Stage 3 pressure ulcers . Depth up to dermis. ) Measurements RIGHT plantar heel ulcer 5 x 4 x 1 CM Depth up to dermis. LEFT plantar heel ulcer 4 x 4 x 1 CM Depth up to dermis. Leg wounds from toes to knees, circumferential with dense adherent dry scales and eschar. lower half of legs and around ankles. Complications: none Surgeon: Yung Medeiros Estimated blood loss (cc): 10 Specimens Removed/Pathology: other (Plantar ucler base tissue RIGHT and LEFT heel ulceres for c/s.) Condition: stable Disposition: PACU
--- NOTE | 2020-04-04 14:29 | Operative Note ---
DATE OF OPERATION: 04/04/2020 PREOPERATIVE DIAGNOSES: 1. Morbid obesity. 2. Plantar ulcers, both heels. 3. Resolving cellulitis, dry scaly dermatitis, right and left leg. POSTOPERATIVE DIAGNOSES: 1. Morbid obesity. 2. Plantar ulcers, both heels. 3. Resolving cellulitis, dry scaly dermatitis, right and left leg. PROCEDURE: 1. Debridement of the wounds. 2. Pulse lavage irrigation with antibiotic solution. 3. Tissue for culture and sensitivity from diabetic foot ulcers under both heels. ANESTHESIA: General laryngeal mask airway. REMELT WORKER: Jt Henderson CRNA. SURGEON: Yung Medeiros MD FINDINGS: 1. Morbid obese gentleman with chronic lymphedema of both legs. 2. Cellulitis dermatitis of legs and plantar ulcers under both heels, stage III up to dermis improving and resolving on conservative management on the floor. WOUND DIMENSIONS: Right plantar heel: 5 x 4 x 1 cm, depth to dermis. Left plantar ulcer: 4 x 4 x 1 cm, depth up to dermis. Leg wounds with edema and dry adherent scales from the dorsal surface of the foot up to the knee. A dense eschar adherent circumferentially around the ankles and lower legs. PROCEDURE NOTE IN DETAIL: After obtaining informed consent, patient was taken to the operating room. He was anesthetized uneventfully in supine position using laryngeal mask airway. Time out was called. He was already pretreated with intravenous antibiotics and ultrasound-guided MIST treatments on the floor. Preoperative photographs were taken. Both legs were widely cleaned, prepped, and draped from the knees down to the toes. The patient was carefully placed in Trendelenburg position about 5 degrees. First, we used a soft scrub brush and carefully washed and scrubbed his demarcating eschar. We removed over 60-70% of adherent scales from the left leg and about 50-60% on the right leg. The plantar ulcers were sharply debrided with #7 metal curette. We were able to obtain lead generation representative samples from the depths of the wound. These were individually sent in separate containers for culture and sensitivities. Dressings consisted of Xeroform gauze for the heel ulcers. We placed Adaptic gauze over the link areas and applied Silvadene cream from the toes up to the knee circumferentially over the debrided skin. This was reinforced with 4 x 4 gauze pieces around the ankle and leg, held in place with a Kerlix and Bjorn bandages respectively. Estimated blood loss under 10 mL. Count of swabs, instruments and needles was reported to be correct. VD:nathanael Job ID: [id number] Doc ID: [id number] Yung Medeiros MD MTDD
[2020-04-04] MEDS ORDERED: ACETAMINOPHEN 1,000 MG/100 ML BAG IV ONE (15:30)
--- NOTE | 2020-04-04 16:35 | Internal Med Progress Note ---
SUBJECTIVE Subjective Patient information: Note initiated : 04/04/20 at 4:30 pm Service Date, if different from initiated Date: [] Patient: Jarred Villafana 79 y/o M admitted on 04/01/20 for heel wounds. Chief Complaint: [heel wounds] Interval history: Mr. Villafana is a 79 year old M history of chronic lymphedema/lipodermatosclerosis and has noted worsening with increasing weeping that has been progressive over the last month. He has been seeing wound care clinic for heel ulceration that has failed to improve despite outpatient treatment. He was referred to the ER for evaluation by principal technical specialist Dr. Medeiros for hospitalization and management of nonhealing bilateral heel ulcer/diffuse lymphedema and cellulitis changes requiring antibiotics. Initial work-up in the ER was essentially unremarkable without signs of sepsis or hemodynamic instability however in light of nonhealing lower extremity ulcer and failed outpatient treatment hospital service was consulted for admission for continued wound care/ulcer management. 04/03 stable today, debridement planned for tomorrow. 04/04 went for debridement today, follow up on surgical cultures and surgery recommendations. Constitutional Vitals: Vital Signs Temp Pulse Resp BP Pulse Ox 98.2 F 78 20 147/75 93 04/04/20 13:20 04/04/20 13:20 04/04/20 13:20 04/04/20 13:20 04/04/20 13:20 Period Temp Pulse Resp BP Sys/Stewart Pulse Ox Last 24 Hr 97.5 F-98.9 F 61-79 16-26 129-160/64-88 91-98 Intake and Output 04/04/20 04/04/20 04/04/20 05:59 13:59 21:59 Intake Total 2400 50 Output Total 1999 200 Balance 400 -150 Weight 158.803 kg Patient Weight 04/05/20 05:59 Weight 158.803 kg Intake & Output: Intake & Output 04/04/20 04/04/20 04/04/20 05:59 13:59 21:59 Intake Total 2400 50 Output Total 1999 200 Balance 400 -150 Weight 158.803 kg Intake: IV 50 Rocephin 2 gm In Dextrose 5% in 50 Water 50 ml @ 100 mls/hr IV DAILY [facility] Rx#:[id number] Oral 2400 Output: Void Amount 1999 Other: Urine Appearance Clear Urine Color Bright Yellow Bright Yellow Urine Odor Normal Strong Head Head exam: Present atraumatic and normal inspection Eye Eye exam: Present normal appearance ENT ENT exam: Present mucous membranes moist, normal exam and normal external ear exam Neck Neck exam: Present normal inspection Respiratory Respiratory exam: Present normal respiratory exam Cardiovascular Cardiovascular exam: Present normal rate and rhythm GI/Abdominal GI/Abdominal exam: Present normal bowel sounds Back Exam Back exam: Present normal inspection Neurological Exam Neurological exam: Present alert and oriented X3 Skin Additional comments: bilateral heel wounds with mild periwound erythema OBJ DATA Labs CBC & Chem 7: 04/04/20 05:41 04/04/20 05:41 Labs: Abnormal Lab Results 04/04/20 04/04/20 04/04/20 05:41 05:41 05:41 RBC Hgb Hct Neut % (Auto) Lymph % (Auto) 11.5 L Lymph # (Auto) 0.90 L Absolute Neutrophils Chloride Glucose 109 H Calcium 8.3 L Lactate Dehydrogenase 281 H C-Reactive Protein 2.00 H Albumin 2.8 L Albumin/Globulin Ratio 0.8 L Procalcitonin 04/03/20 04/03/20 04/02/20 05:30 05:30 04:56 RBC Hgb Hct Neut % (Auto) 80.4 H Lymph % (Auto) 9.1 L Lymph # (Auto) 0.80 L Absolute Neutrophils Chloride 95 L Glucose 124 H 127 H Calcium 8.1 L Lactate Dehydrogenase 254 H 247 H C-Reactive Protein Albumin 3.0 L 3.0 L Albumin/Globulin Ratio 0.9 L Procalcitonin 04/02/20 04/01/20 04/01/20 04:56 15:32 15:32 RBC 4.22 L Hgb 13.0 L Hct 39.7 L Neut % (Auto) 80.4 H Lymph % (Auto) 9.0 L Lymph # (Auto) 0.80 L Absolute Neutrophils Chloride 95 L Glucose 112 H Calcium Lactate Dehydrogenase C-Reactive Protein Albumin Albumin/Globulin Ratio Procalcitonin 0.12 H 04/01/20 15:32 RBC 4.39 L Hgb 13.4 L Hct 40.9 L Neut % (Auto) 80.8 H Lymph % (Auto) 8.8 L Lymph # (Auto) 0.94 L Absolute Neutrophils 8.65 H Chloride Glucose Calcium Lactate Dehydrogenase C-Reactive Protein Albumin Albumin/Globulin Ratio Procalcitonin Meds: Medications Acetaminophen (Tylenol) 650 mg PO Q4-6HP PRN; Protocol PRN Reason: Per Pain Protocol/Fever > 101 Last Admin: 04/04/20 09:30 Dose: 650 mg Documented by: Bacitracin (Bacitracin Topical Oint) 1 dose TOPICAL BID [facility] Last Admin: 04/04/20 09:23 Dose: Not Given Documented by: Bisacodyl (Dulcolax) 10 mg [place] Q2-3DAYS PRN PRN Reason: Constipation Docusate Sodium (Colace) 100 mg PO BID [facility] Last Admin: 04/04/20 09:23 Dose: Not Given Documented by: Guaifenesin/Codeine Phosphate (Robitussin Ac) 10 ml PO Q4HP PRN PRN Reason: Cough Heparin Sodium (Porcine) (Heparin) 5,000 unit SQ Q12 [facility] Last Admin: 04/04/20 09:22 Dose: Not Given Documented by: Ceftriaxone Sodium 2 gm/ (Dextrose) 50 mls @ 100 mls/hr IV DAILY [facility]; Protocol Last Infusion: 04/04/20 09:25 Dose: Infused Documented by: Potassium Chloride 40 meq/ (Dextrose) 520 mls @ 130 mls/hr IV UD PRN PRN Reason: K+ = or < 3.5 Acetaminophen (Ofirmev) 650 mg in 65 mls @ 130 mls/hr IV Q6HP PRN; Protocol PRN Reason: Per Pain Protocol/Fever > 101 Magnesium Sulfate (Magnesium Sulfate) 2 gm in 50 mls @ 50 mls/hr IV UD PRN PRN Reason: MG = or < 1.7 Vancomycin HCl 1,500 mg/ (Sodium Chloride) 500 mls @ 333.3 mls/hr IV Q12H [facility] Last Admin: 04/04/20 11:37 Dose: 333.3 mls/hr Documented by: Iron Carb/Multivit/Ferryboat Captain/Folic Acid (Multivitamin W/Minerals) 1 tab PO DAILY [facility] Last Admin: 04/04/20 09:22 Dose: Not Given Documented by: Melatonin (Melatonin 3mg Tablet) 3 mg PO HSP PRN PRN Reason: Insomnia Last Admin: 04/03/20 02:27 Dose: 3 mg Documented by: Metoprolol Succinate (Toprol Xl) 50 mg PO QDAY [facility] Last Admin: 04/04/20 08:54 Dose: 50 mg Documented by: Ondansetron HCl (Zofran Odt) 4 mg SL Q4-6HP PRN; Protocol PRN Reason: Nausea And Vomiting Ondansetron HCl (Zofran) 4 mg IV Q4-6HP PRN; Protocol PRN Reason: Nausea And Vomiting Polyethylene Glycol (Miralax) 17 gm PO DAILYP PRN PRN Reason: Constipation Potassium Chloride (Kdur) 10 meq PO BIDCC [facility] Last Admin: 04/04/20 09:22 Dose: Not Given Documented by: Senna/Docusate Sodium (Senna Plus Tablet) 1 tab PO HS [facility] Last Admin: 04/03/20 21:37 Dose: Not Given Documented by: Silver Sulfadiazine (Silvadene) 1 dose TOPICAL DAILY [facility] Last Admin: 04/04/20 12:40 Dose: 1 each Documented by: Sodium Chloride (Saline Flush) 10 ml IV Q8 [facility] Last Admin: 04/04/20 06:02 Dose: 10 ml Documented by: Torsemide (Demadex) 20 mg PO BIDD [facility] Last Admin: 04/04/20 09:23 Dose: Not Given Documented by: Vancomycin HCl (Vancomycin Per Pharmacy) 1 order IV UD [facility]; Protocol A/P Narrative A/P Narrative: A/P Narrative: 79 year old male with chronic lymphedema admitted for bilateral heel wounds and mild cellulitis, started on antibiotics and surger y consulted. Hospital course has been uncomlicated. #Bilateral heel wounds #Cellulitis Debridement of wounds, today, continues on Vancomycin IV and Ceftriaxone, likely deescalate to oral soon to complete 5-10 days for cellulitis. No evidence of osteomyelitis on xrays, no evidence of vascular insufficiency with arterial doppler. Check CRP, continue wounds cares. #Chronic lymphedema - on home torsemide and potassium supplement. #DVT prophylaxis - heparin SQ Time Spent With Patient Time: Total time spent is greater than 50% in coordination of care (as documented) at patient's floor/unit and/or counseling patient: Total time spent with greater than 50% in coordination of care (as documented) at patient's floor/unit and/or counseling patient:: 15 - 24 minutes QUALITY VTE Deep Vein Thrombosis/Pulmonary Embolism Present on Admission: No
[2020-04-04] MEDS: SENNOSIDES/DOCUSATE SODIUM 1 TAB TABLET PO SCH (19:32)
[2020-04-04] MEDS: MUPIROCIN OINT 2% 22GM NARES SCH (20:58)
[2020-04-05] MEDS: 0.9 % SODIUM CHLORIDE 10 ML SYRINGE IV SCH ×3 (05:16→20:14)
[2020-04-05 06:57] LABS: Basophils # (Auto) 0.04 K/mcL (0.00-0.20); Basophils % (Auto) 0.4 % (0.0-2.0); Eosinophils # (Auto) 0.02 K/mcL (0.00-0.70); Eosinophils % (Auto) 0.2 % (0.0-7.0); Hematocrit 43.6 % (41.0-55.0); Hemoglobin 13.9 g/dL (13.5-16.5); Lymphocytes # (Auto) 0.74 K/mcL (1.50-4.80); Lymphocytes % (Auto) 7.8 % (15.0-49.0); Mean Cell Volume 96.5 fL (80.0-100.0); Mean Corpuscular HGB Conc 31.9 g/dL (31.0-36.0); Mean Platelet Volume 8.9 fL (7.4-10.4); Monocytes % (Auto) 6.4 % (1.0-12.0); Neutrophils % (Auto) 85.2 % (38.0-78.0); Platelet Count 245 K/mcL (140-440); RBC 4.52 M/mcL (4.50-5.90); Red Cell Distribution Width 13.5 % (11.5-14.5); WBC 9.4 K/mcL (4.5-11.0)
[2020-04-05 07:26] LABS: ALT/SGPT 41 U/L (<40); AST/SGOT 45 U/L (<40); Albumin 3.1 gm/dL (3.2-5.2); Alkaline Phosphatase 84 U/L (39-117); Bilirubin,Direct < 0.2 mg/dL (<0.3); Bilirubin,Total 0.3 mg/dL (0.1-1.0); Blood Urea Nitrogen 8 mg/dL (8-23); Calcium 8.1 mg/dL (8.6-10.4); Carbon Dioxide 33 mmol/L (22-30); Chloride 95 mmol/L (96-108); Globulin 3.1 gm/dL (2.2-3.7); Glomerular Filtration Rate 89; Glucose 107 mg/dL (70-105); Lactate Dehydrogenase 246 U/L (135-225); Phosphorous 2.6 mg/dL (2.5-4.5); Triglycerides 108 mg/dL (<150); Uric Acid 6.7 mg/dL (2.5-8.0)
--- NOTE | 2020-04-05 09:14 | General Surgery Progress Note ---
SUBJECTIVE Subjective Patient information: Note initiated : 04/05/20 at 9:08 am Service Date, if different from initiated Date: [] Patient: Jarred Villafana 79 y/o M admitted on 04/01/20 for heel wounds. Chief Complaint: [] Additional PMFSH (Level 3 Only): POD # 1. Patient seen with Kelsi PRINCE, Inpatient Wound Care nurse. Progress and ambulation needs reviewed with Physical Therapy. Constitutional Vitals: Vital Signs Temp Pulse Resp BP Pulse Ox 98.1 F 75 24 H 131/75 90 04/05/20 07:56 04/05/20 07:56 04/05/20 07:56 04/05/20 07:56 04/05/20 07:56 Period Temp Pulse Resp BP Sys/Stewart Pulse Ox Last 24 Hr 96.9 F-98.4 F 61-84 16-26 129-166/64-96 89-98 Intake and Output 04/04/20 04/05/20 04/05/20 21:59 05:59 13:59 Intake Total 900 340 Output Total 1400 975 Balance -500 -635 Weight 350 lb Intake & Output: Intake & Output 04/04/20 04/05/20 04/05/20 21:59 05:59 13:59 Intake Total 900 340 Output Total 1400 975 Balance -500 -635 Weight 350 lb Intake: Oral 900 340 Output: Urine Catheter Amount 350 Void Amount 1050 975 Other: Meal Dinner Percent of Meal Consumed 100% Feeding Ability Assist with Tray Set Up Urine Appearance Clear Clear Urine Color Pale Bright Yellow Urine Odor Normal Exam: AVSS. Patient had an uneventful night. L/E: Dressings taken down. Both anterior link and leg sites are clean. Heel plantar ulcers are granular at base. Still has thick adherent scales around ankles and back of legs. A/P Narrative A/P Narrative: Assessment: Patient is able to stand and bear weight on forefeet and toes. He is a big man. NEEDS short term Rehab, for continuation of Physical Therapy until wounds improve. Explained this to patient. He wants to speak with CM. Plan: Continue present treatment. Case Management consult for discharge planning. Time Spent With Patient Time: Total time spent is greater than 50% in coordination of care (as documented) at patient's floor/unit and/or counseling patient: Total time spent with greater than 50% in coordination of care (as documented) at patient's floor/unit and/or counseling patient:: Greater than 35 minutes
[2020-04-05] MEDS: VANCOMYCIN 1,500 MG in 0.9 % SODIUM CHLORIDE 500 ML IV SCH ×2 (09:35→20:13)
[2020-04-05] MEDS: HEPARIN 5,000 UNIT/ML VIAL SQ SCH ×2 (10:23→21:34)
[2020-04-05] MEDS: MULTIVIT,THER IRON,CA,FA & MIN 1 TABLET PO SCH (10:25)
[2020-04-05] MEDS: POTASSIUM CHLORIDE 10 MEQ TABLET PO SCH ×2 (10:26→17:44)
[2020-04-05] MEDS: METOPROLOL SUCCINATE 50 MG TAB.XL.24H PO SCH (10:27)
[2020-04-05] MEDS: TORSEMIDE 10 MG TABLET PO SCH ×2 (10:28→17:44)
[2020-04-05] MEDS: DOCUSATE SODIUM 100 MG CAPSULE PO SCH ×2 (10:30→20:13)
[2020-04-05] MEDS: MUPIROCIN OINT 2% 22GM NARES SCH ×2 (10:30→20:13)
[2020-04-05] MEDS: BACITRACIN TOPICAL OINT 15 GM TUBE TOPICAL SCH ×2 (10:34→20:14)
[2020-04-05] MEDS: cefTRIAXone 2 GM in DEXTROSE 5% IN WATER 50 ML IV SCH (10:50)
--- NOTE | 2020-04-05 11:26 | Internal Med Progress Note ---
SUBJECTIVE Subjective Patient information: Note initiated : 04/05/20 at 11:21 am Service Date, if different from initiated Date: [] Patient: Jarred Villafana 79 y/o M admitted on 04/01/20 for heel wounds. Chief Complaint: [heel wounds] Interval history: Mr. Villafana is a 79 year old M history of chronic lymphedema/lipodermatosclerosis and has noted worsening with increasing weeping that has been progressive over the last month. He has been seeing wound care clinic for heel ulceration that has failed to improve despite outpatient treatment. He was referred to the ER for evaluation by aviation technical systems specialist Dr. Medeiros for hospitalization and management of nonhealing bilateral heel ulcer/diffuse lymphedema and cellulitis changes requiring antibiotics. Initial work-up in the ER was essentially unremarkable without signs of sepsis or hemodynamic instability however in light of nonhealing lower extremity ulcer and failed outpatient treatment hospital service was consulted for admission for continued wound care/ulcer management. 04/03-stable today, debridement planned for tomorrow. 04/04-went for debridement today, follow up on surgical cultures and surgery recommendations. 04/05-discharge planning for SNF rehab placement, patient reluctantly agreeable. Likely deescalate antibiotics soon, following surgery cultures. Constitutional Vitals: Vital Signs Temp Pulse Resp BP Pulse Ox 98.1 F 75 24 H 131/75 90 04/05/20 07:56 04/05/20 07:56 04/05/20 07:56 04/05/20 07:56 04/05/20 07:56 Period Temp Pulse Resp BP Sys/Stewart Pulse Ox Last 24 Hr 96.9 F-98.4 F 69-84 16-26 129-166/64-96 89-98 Intake and Output 04/04/20 04/05/20 04/05/20 21:59 05:59 13:59 Intake Total 900 340 Output Total 1400 975 Balance -500 -635 Weight 158.757 kg Intake & Output: Intake & Output 04/04/20 04/05/20 04/05/20 21:59 05:59 13:59 Intake Total 900 340 Output Total 1400 975 Balance -500 -635 Weight 158.757 kg Intake: Oral 900 340 Output: Urine Catheter Amount 350 Void Amount 1050 975 Other: Meal Dinner Percent of Meal Consumed 100% Feeding Ability Assist with Tray Set Up Urine Appearance Clear Clear Urine Color Pale Bright Yellow Urine Odor Normal Head Head exam: Present atraumatic and normal inspection Eye Eye exam: Present normal appearance Neck Neck exam: Present full ROM Respiratory Respiratory exam: Present normal respiratory exam Cardiovascular Cardiovascular exam: Present normal rate and rhythm GI/Abdominal GI/Abdominal exam: Present soft and distended; Absent tenderness Extremities Exam Additional comments: Heel wounds covered in clean bandages Neurological Exam Neurological exam: Present CN II-XII intact and oriented X3 Psychiatric Psychiatric exam: Present normal affect and normal mood Skin Skin exam: Present normal color and warm OBJ DATA Labs CBC & Chem 7: 04/05/20 05:10 04/05/20 05:10 Labs: Abnormal Lab Results 04/05/20 04/05/20 04/04/20 05:10 05:10 05:41 Neut % (Auto) 85.2 H Lymph % (Auto) 7.8 L Lymph # (Auto) 0.74 L Absolute Neutrophils 8.03 H Chloride 95 L Carbon Dioxide 33 H Glucose 107 H Calcium 8.1 L AST 45 H ALT 41 H Lactate Dehydrogenase 246 H C-Reactive Protein 2.00 H Albumin 3.1 L Albumin/Globulin Ratio 04/04/20 04/04/20 04/03/20 05:41 05:41 05:30 Neut % (Auto) Lymph % (Auto) 11.5 L Lymph # (Auto) 0.90 L Absolute Neutrophils Chloride Carbon Dioxide Glucose 109 H 124 H Calcium 8.3 L 8.1 L AST ALT Lactate Dehydrogenase 281 H 254 H C-Reactive Protein Albumin 2.8 L 3.0 L Albumin/Globulin Ratio 0.8 L 0.9 L 04/03/20 05:30 Neut % (Auto) 80.4 H Lymph % (Auto) 9.1 L Lymph # (Auto) 0.80 L Absolute Neutrophils Chloride Carbon Dioxide Glucose Calcium AST ALT Lactate Dehydrogenase C-Reactive Protein Albumin Albumin/Globulin Ratio Meds: Medications Acetaminophen (Tylenol) 650 mg PO Q4-6HP PRN; Protocol PRN Reason: Per Pain Protocol/Fever > 101 Last Admin: 04/04/20 09:30 Dose: 650 mg Documented by: Bacitracin (Bacitracin Topical Oint) 1 dose TOPICAL BID [facility] Last Admin: 04/05/20 10:34 Dose: Not Given Documented by: Bisacodyl (Dulcolax) 10 mg [place] Q2-3DAYS PRN PRN Reason: Constipation Docusate Sodium (Colace) 100 mg PO BID [facility] Last Admin: 04/05/20 10:30 Dose: Not Given Documented by: Guaifenesin/Codeine Phosphate (Robitussin Ac) 10 ml PO Q4HP PRN PRN Reason: Cough Heparin Sodium (Porcine) (Heparin) 5,000 unit SQ Q12 [facility] Last Admin: 04/05/20 10:23 Dose: 5,000 unit Documented by: Ceftriaxone Sodium 2 gm/ (Dextrose) 50 mls @ 100 mls/hr IV DAILY [facility]; Protocol Last Admin: 04/05/20 10:50 Dose: 100 mls/hr Documented by: Potassium Chloride 40 meq/ (Dextrose) 520 mls @ 130 mls/hr IV UD PRN PRN Reason: K+ = or < 3.5 Acetaminophen (Ofirmev) 650 mg in 65 mls @ 130 mls/hr IV Q6HP PRN; Protocol PRN Reason: Per Pain Protocol/Fever > 101 Magnesium Sulfate (Magnesium Sulfate) 2 gm in 50 mls @ 50 mls/hr IV UD PRN PRN Reason: MG = or < 1.7 Vancomycin HCl 1,500 mg/ (Sodium Chloride) 500 mls @ 333.3 mls/hr IV Q12H [facility] Last Admin: 04/04/20 20:58 Dose: 333 mls/hr Documented by: Iron Carb/Multivit/Pulmonary Function Technician/Folic Acid (Multivitamin W/Minerals) 1 tab PO DAILY [facility] Last Admin: 04/05/20 10:25 Dose: 1 tab Documented by: Melatonin (Melatonin 3mg Tablet) 3 mg PO HSP PRN PRN Reason: Insomnia Last Admin: 04/03/20 02:27 Dose: 3 mg Documented by: Metoprolol Succinate (Toprol Xl) 50 mg PO QDAY [facility] Last Admin: 04/05/20 10:27 Dose: 50 mg Documented by: Mupirocin (Bactroban Oint 2%) 1 dose NARES BID [facility] Last Admin: 04/05/20 10:30 Dose: 1 dose Documented by: Ondansetron HCl (Zofran Odt) 4 mg SL Q4-6HP PRN; Protocol PRN Reason: Nausea And Vomiting Ondansetron HCl (Zofran) 4 mg IV Q4-6HP PRN; Protocol PRN Reason: Nausea And Vomiting Polyethylene Glycol (Miralax) 17 gm PO DAILYP PRN PRN Reason: Constipation Potassium Chloride (Kdur) 10 meq PO BIDCC [facility] Last Admin: 04/05/20 10:26 Dose: 10 meq Documented by: Senna/Docusate Sodium (Senna Plus Tablet) 1 tab PO HS [facility] Last Admin: 04/04/20 19:32 Dose: Not Given Documented by: Silver Sulfadiazine (Silvadene) 1 dose TOPICAL DAILY [facility] Last Admin: 04/04/20 12:40 Dose: 1 each Documented by: Sodium Chloride (Saline Flush) 10 ml IV Q8 [facility] Last Admin: 04/05/20 05:16 Dose: 10 ml Documented by: Torsemide (Demadex) 20 mg PO BIDD [facility] Last Admin: 04/05/20 10:28 Dose: 20 mg Documented by: Vancomycin HCl (Vancomycin Per Pharmacy) 1 order IV UD [facility]; Protocol A/P Narrative A/P Narrative: A/P Narrative: A/P Narrative: 79 year old male with chronic lymphedema admitted for bilateral heel wounds and mild cellulitis, started on antibiotics and surgery consulted. Hospital course has been uncomlicated. #Bilateral heel wounds #Cellulitis Debridement of wounds, today, continues on Vancomycin IV and Ceftriaxone, likely deescalate to oral soon to complete 5-10 days for cellulitis. No evidence of osteomyelitis on xrays, no evidence of vascular insufficiency with arterial doppler. CRP was 2.0, continue wounds cares. Looking into SNF discharge options. #Chronic lymphedema - on home torsemide and potassium supplement. #DVT prophylaxis - heparin SQ Time Spent With Patient Time Spent With Patient Time: Total time spent is greater than 50% in coordination of care (as docu mented) at patient's floor/unit and/or counseling patient: Total time spent with greater than 50% in coordination of care (as documented) at patient's floor/unit and/or counseling patient:: 15 - 24 minutes QUALITY VTE Deep Vein Thrombosis/Pulmonary Embolism Present on Admission: No
[2020-04-05] MEDS: MELATONIN 3 MG TABLET PO PRN (20:13)
[2020-04-05] MEDS: SENNOSIDES/DOCUSATE SODIUM 1 TAB TABLET PO SCH (21:35)
[2020-04-06] MEDS: 0.9 % SODIUM CHLORIDE 10 ML SYRINGE IV SCH ×3 (05:23→20:53)
[2020-04-06 06:59] LABS: Basophils % (Auto) 1.2 % (0.0-2.0); Eosinophils # (Auto) 0.37 K/mcL (0.00-0.70); Eosinophils % (Auto) 4.5 % (0.0-7.0); Hematocrit 44.8 % (41.0-55.0); Lymphocytes # (Auto) 1.02 K/mcL (1.50-4.80); Lymphocytes % (Auto) 12.3 % (15.0-49.0); Mean Cell Volume 97.8 fL (80.0-100.0); Mean Corpuscular HGB Conc 31.3 g/dL (31.0-36.0); Mean Platelet Volume 8.8 fL (7.4-10.4); Monocytes # (Auto) 0.66 K/mcL (0.10-0.90); Platelet Count 232 K/mcL (140-440); RBC 4.58 M/mcL (4.50-5.90); Red Cell Distribution Width 13.9 % (11.5-14.5); WBC 8.3 K/mcL (4.5-11.0)
[2020-04-06 07:39] LABS: ALT/SGPT 53 U/L (<40); AST/SGOT 50 U/L (<40); Albumin 3.2 gm/dL (3.2-5.2); Albumin/Globulin Ratio 1.1 (1.0-2.3); Alkaline Phosphatase 90 U/L (39-117); Bilirubin,Direct < 0.2 mg/dL (<0.3); Bilirubin,Total 0.3 mg/dL (0.1-1.0); Blood Urea Nitrogen 10 mg/dL (8-23); Calcium 8.2 mg/dL (8.6-10.4); Carbon Dioxide 35 mmol/L (22-30); Chloride 95 mmol/L (96-108); Globulin 2.9 gm/dL (2.2-3.7); Glomerular Filtration Rate 81; Glucose 102 mg/dL (70-105); Lactate Dehydrogenase 243 U/L (135-225); Phosphorous 2.9 mg/dL (2.5-4.5); Triglycerides 138 mg/dL (<150); Uric Acid 7.4 mg/dL (2.5-8.0)
[2020-04-06] MEDS: METOPROLOL SUCCINATE 50 MG TAB.XL.24H PO SCH (08:44)
[2020-04-06] MEDS: POTASSIUM CHLORIDE 10 MEQ TABLET PO SCH ×2 (08:44→18:36)
[2020-04-06] MEDS: MULTIVIT,THER IRON,CA,FA & MIN 1 TABLET PO SCH (08:45)
[2020-04-06] MEDS: TORSEMIDE 10 MG TABLET PO SCH ×2 (08:45→15:31)
[2020-04-06] MEDS: MUPIROCIN OINT 2% 22GM NARES SCH ×2 (08:45→20:52)
[2020-04-06] MEDS: cefTRIAXone 2 GM in DEXTROSE 5% IN WATER 50 ML IV SCH (08:51)
[2020-04-06] MEDS: HEPARIN 5,000 UNIT/ML VIAL SQ SCH ×2 (08:53→20:52)
[2020-04-06] MEDS: DOCUSATE SODIUM 100 MG CAPSULE PO SCH ×2 (08:53→20:52)
[2020-04-06] MEDS: BACITRACIN TOPICAL OINT 15 GM TUBE TOPICAL SCH ×2 (09:29→20:52)
[2020-04-06] MEDS: VANCOMYCIN 1,500 MG in 0.9 % SODIUM CHLORIDE 500 ML IV SCH (09:34)
[2020-04-06] MEDS: SILVER SULFADIAZINE CREAM.TOP 25GM TOPICAL SCH (09:35)
--- NOTE | 2020-04-06 10:10 | General Surgery Progress Note ---
SUBJECTIVE Subjective Patient information: Note initiated : 04/06/20 at 9:57 am Service Date, if different from initiated Date: [] Patient: Jarred Villafana 79 y/o M admitted on 04/01/20 for heel wounds. Chief Complaint: [] Additional PMFSH (Level 3 Only): Patient seen on rounds with Mat PRINCErn transfer Nurse and with Physical Therapist. Patient had an uneventful night. He is agreeable for ongoing Physical therapy and wound care at Rehab facility. Constitutional Vitals: Vital Signs Temp Pulse Resp BP Pulse Ox 97.9 F 78 18 171/89 94 04/06/20 07:00 04/06/20 07:00 04/06/20 07:00 04/06/20 07:00 04/06/20 07:00 Period Temp Pulse Resp BP Sys/Stewart Pulse Ox Last 24 Hr 97.3 F-98.9 F 59-78 16- 121-171/61-89 90-96 Intake and Output 04/05/20 04/06/20 04/06/20 21:59 05:59 13:59 Intake Total 1100 650 Output Total 1650 700 200 Balance -550 -700 450 Weight 350 lb 12.8 oz Intake & Output: Intake & Output 04/05/20 04/06/20 04/06/20 21:59 05:59 13:59 Intake Total 1100 650 Output Total 1650 700 200 Balance -550 -700 450 Weight 350 lb 12.8 oz Intake: IV 500 50 Vancomycin 1,500 mg In Sodium 500 Chloride 0.9% 500 ml @ 333.3 mls/hr IV Q12H [facility] Rx#: [id number] Rocephin 2 gm In Dextrose 5% in 50 Water 50 ml @ 100 mls/hr IV DAILY [facility] Rx#:[id number] Oral 600 600 Output: Void Amount 1650 700 200 Other: Meal Dinner Breakfast Percent of Meal Consumed 100% 100% Feeding Ability Independent Independent Urine Appearance Clear Clear Urine Color Bright Yellow Pale Urine Odor Normal Exam: AVSS. No changes in MIRYAM. Cellulitis of legs and feet resolved. L/E; Significant improvement in Dermatitis of both legs. Plantar DFU are responding well to local wound care and off loading. Wound c/s Negative thus far. No signs of acute infection or inflammation at this time. A/P Narrative A/P Narrative: Assessment: Satisfactory progress and resolution of acute CSSSI, Cellulitis of both legs and feet. Patient is making progress with ambulation with a walker and weight bearing on toes and forefoot.. Wound and tissue cultures are negative for anaerobes / other bacterial growth. Plan: O K for discharge to Rehab facility with continuation of daily MIST and local wound care, dressings. Continuation of Physical Therapy. Await input regarding progress with Physical Therapy and ADL. Patient has stairs at home. O K to D/C IV antibiotics. Switch to PO Doxycycline 100mg PO q 12 Hrly for 15 days. F/u at wound care center in 1 week after discharge. Plan discussed with Hospitalist Physician. Thanks. Time Spent With Patient Time: Total time spent is greater than 50% in coordination of care (as documented) at patient's floor/unit and/or counseling patient:
--- NOTE | 2020-04-06 10:46 | Discharge Summary ---
Discharge Provider Provider Patient information: Note initiated : 04/07/20 at 10:46 am Service Date, if different from initiated Date: [] Patient: Jarred Villafana 79 y/o M admitted on 04/01/20 for heel wounds. Chief Complaint: [] Date of admission: 04/01/20 20:42 Discharge date: 04/07/20 Primary care physician: Pj Stark M.D., F.A.A.F.P. Consults: 04/01/20 Consult to Physician [CONS] Stat Comment: Consulting Provider: Hao Cooney Reason For Exam: Physician to Consult 04/01/20 20:54 Consult to Physician [CONS] Routine Comment: Heel wound Consulting Provider: Yung Medeiros Reason For Exam: Physician to Consult Discharge Meds Discharge Medications Home Medications potassium chloride 10 mEq tablet,extended release See Rx Instructions .ROUTE .COMPLEX #180 tab 02/10/20 [Rx Confirmed 04/01/20 Last Taken 04/01/20 08:00] metoprolol succinate 50 mg tablet,extended release 24 hr 50 mg PO QDAY #90 tab 02/17/20 [Rx Confirmed 04/01/20 Last Taken 04/01/20 08:00] torsemide 20 mg tablet 20 mg PO BID #180 tab 02/17/20 [Rx Confirmed 04/01/20 Last Taken 04/01/20 08:00] bacitracin 1 dose TOPICAL BID 7 Days #1 g 04/06/20 [Rx Last Taken Unknown] doxycycline hyclate 100 mg PO BID 2 Days #4 cap 04/06/20 [Rx Last Taken Unknown] COURSE Hospital Course Hospital course: Mr. Villafana is a 79 year old M history of chronic lymphede ma/lipodermatosclerosis and has noted worsening with increasing weeping that has been progressive over the last month. He has been seeing wound care clinic for heel ulceration that has failed to improve despite outpatient treatment. He was referred to the ER for evaluation by import specialist Dr. Medeiros for hospitalization and management of nonhealing bilateral heel ulcer/diffuse lymphedema and cellulitis changes requiring antibiotics. Initial work-up in the ER was essentially unremarkable without signs of sepsis or hemodynamic instability however in light of nonhealing lower extremity ulcer and failed outpatient treatment hospital service was consulted for admission for continued wound care/ulcer management. 04/03-stable today, debridement planned for tomorrow. On Vancomycin and Ceftriaxone. 04/04-went for debridement today, follow up on surgical cultures and surgery recommendations. 04/05-discharge planning for SNF rehab placement, patient reluctantly agreeable. Antiboitics deescalated to doxycycline, following surgery cultures. 04/06-discharge cancelled because a SNF bed is not currently available. 04/07-discharged to SNF. Discharge diagnosis: heel wounds Time Spent with Patient Time attestation: Total time spent providing and/or coordinating discharge services: Time spent: Greater than 30 minutes EXAM Constitutional Vitals: Temp Pulse Resp BP Pulse Ox 97.9 F 78 18 171/89 94 04/06/20 07:00 04/06/20 07:00 04/06/20 07:00 04/06/20 07:00 04/06/20 07:00 Head Head exam: Present atraumatic and normal inspection Eye Eye exam: Present normal appearance; Absent scleral icterus Neck Neck exam: Present full ROM Respiratory Respiratory exam: Present normal respiratory exam Cardiovascular Cardiovascular exam: Present normal rate and rhythm GI/Abdominal GI/Abdominal exam: Present soft; Absent tenderness Extremities Exam Extremities exam: Present full ROM and pedal edema Neurological Exam Neurological exam: Present CN II-XII intact and oriented X3 Psychiatric Psychiatric exam: Present normal affect and normal mood Skin Additional comments: bilateral heel wounds wrapped in clean bandages Discharge Data Data Completed and Pending Labs on day of discharge: Labs from last 24 hours 04/06/20 04/06/20 05:13 05:13 WBC 8.3 RBC 4.58 Hgb 14.0 Hct 44.8 MCV 97.8 MCH 30.6 MCHC 31.3 RDW 13.9 Plt Count 232 MPV 8.8 Neut % (Auto) 74.0 Lymph % (Auto) 12.3 L [place] % (Auto) 8.0 Eos % (Auto) 4.5 Baso % (Auto) 1.2 Lymph # (Auto) 1.02 L [place] # (Auto) 0.66 Eos # (Auto) 0.37 Baso # (Auto) 0.10 Absolute Neutrophils 6.15 Sodium 138 Potassium 3.9 Chloride 95 L Carbon Dioxide 35 H Anion Gap 8.0 BUN 10 Creatinine 0.9 GFR Calculation 81 Glucose 102 Uric Acid 7.4 Calcium 8.2 L Phosphorus 2.9 Magnesium 2.3 Total Bilirubin 0.3 Direct Bilirubin < 0.2 GGT 45 AST 50 H ALT 53 H Alkaline Phosphatase 90 Lactate Dehydrogenase 243 H Total Protein 6.1 Albumin 3.2 Globulin 2.9 Albumin/Globulin Ratio 1.1 Triglycerides 138 Preliminary micro results at discharge 04/04/20 12:51 Anaerobic Culture - Preliminary Foot - Right 04/04/20 12:50 Anaerobic Culture - Preliminary Foot - Left Discharge Plan Patient/Caregiver Discharge Instructions Activity: as per physical therapy Diet: Low Sodium (2gm) Instructions: Doxycycline (By mouth), Bacitracin (On the skin), Cellulitis (DC), Debridement (DC), Lymphedema (DC), Acute Wounds (GEN) Activity Restrictions/Additional Instructions: Activity as per physical therapy. Low sodium diet as tolerated. Call your physician for sustained fever greater than 100.5, increase in redness/pain at wound, or any other questions/concerns. This discharge packet is provided to you to help keep you informed about your care. We want to ensure you get everything you need when you go home. You will also be receiving a call from us in a few days to follow up with you and see how you are doing since your discharge. This gives us a chance to listen to any concerns you maybe experiencing since you were discharged or any additional needs you may have, as well as providing us feedback on your care experience. We strive to always provide excellent care and thank you for your feedback and for choosing [facility]. Prescriptions: New bacitracin 500 unit/gram Ointment 1 dose topical BID 7 Days Qty: 1 RF: 0 doxycycline hyclate 100 mg capsule 100 mg PO BID 2 Days Qty: 4 RF: 0 Continued potassium chloride 10 mEq tablet extended release See Rx Instructions .ROUTE .COMPLEX Qty: 180 RF: 6 torsemide 20 mg tablet 20 mg PO BID Qty: 180 RF: 1 metoprolol succinate [Toprol XL] 50 mg tablet extended release 24 hr 50 mg PO QDAY Qty: 90 RF: 4 Other Ambulatory Orders: OT Discharge Order (Routine) Location: None Selected Ordered By: Kyrie Carreno Physical Therapy at Discharge - General (Routine) Location: None Selected Ordered By: Kyrie Carreno Follow Up Plan Follow up with: Yung Medeiros MD [Physician] - 04/12/20 2:20 pm Denis Fortune MD [Physician] - 04/11/20 3:00 pm (Please check in at 2:45 pm for this appointment) Patient Disposition: Xfer SNF Prognosis: Fair Rehab Potential: Fair I certify that the patient requires SNF services: Yes Discharge Orders: Discharge Order (Routine); Ordered 04/06/20 Ordered By: Kyrie Carreno QUALITY VTE Deep Vein Thrombosis/Pulmonary Embolism Present on Admission: No
[2020-04-06] MEDS ORDERED: DOXYCYCLINE HYCLATE 100 MG TABLET.ORL PO ONE (11:00)
--- NOTE | 2020-04-06 18:58 | Internal Med Progress Note ---
SUBJECTIVE Subjective Patient information: Note initiated : 04/06/20 at 6:55 pm Service Date, if different from initiated Date: [] Patient: Jarred Villafana 79 y/o M admitted on 04/01/20 for heel wounds. Chief Complaint: [] Interval history: Mr. Villafana is a 79 year old M history of chronic lymphedema/lipodermatosclerosis and has noted worsening with increasing weeping that has been progressive over the last month. He has been seeing wound care clinic for heel ulceration that has failed to improve despite outpatient treatment. He was referred to the ER for evaluation by hydramatic specialist Dr. Medeiros for hospitalization and management of nonhealing bilateral heel ulcer/diffuse lymphedema and cellulitis changes requiring antibiotics. Initial work-up in the ER was essentially unremarkable without signs of sepsis or hemodynamic instability however in light of nonhealing lower extremity ulcer and failed outpatient treatment hospital service was consulted for admission for continued wound care/ulcer management. 04/03-stable today, debridement planned for tomorrow. 04/04-went for debridement today, follow up on surgical cultures and surgery recommendations. 04/05-discharge planning for SNF rehab placement, patient reluctantly agreeable. Likely deescalate antibiotics soon, following surgery cultures. 04/06-discharge cancelled because a SNF bed is not currently available. Constitutional Vitals: Vital Signs Temp Pulse Resp BP Pulse Ox 98.0 F 77 18 168/88 96 04/06/20 11:00 04/06/20 11:00 04/06/20 11:00 04/06/20 11:00 04/06/20 11:00 Period Temp Pulse Resp BP Sys/Stewart Pulse Ox Last 24 Hr 97.9 F-98.9 F 59-78 16-22 128-171/68-89 90-96 Intake and Output 04/06/20 04/06/20 04/06/20 05:59 13:59 21:59 Intake Total 1010 240 Output Total 700 500 400 Balance -700 510 -160 Intake & Output: Intake & Output 04/06/20 04/06/20 04/06/20 05:59 13:59 21:59 Intake Total 1010 240 Output Total 700 500 400 Balance -700 510 -160 Intake: IV 50 Rocephin 2 gm In Dextrose 5% in 50 Water 50 ml @ 100 mls/hr IV DAILY [facility] Rx#:[id number] Oral 960 240 Output: Void Amount 700 500 400 Other: Meal Lunch Percent of Meal Consumed 100% Feeding Ability Independent Urine Appearance Clear Urine Color Pale Head Head exam: Present atraumatic and normal inspection Eye Eye exam: Present normal appearance ENT ENT exam: Present mucous membranes moist, normal exam and normal external ear exam Neck Neck exam: Present normal inspection Respiratory Respiratory exam: Present normal respiratory exam Cardiovascular Cardiovascular exam: Present normal rate and rhythm GI/Abdominal GI/Abdominal exam: Present normal bowel sounds Extremities Exam Additional comments: bilateral feel wrapped in clean bandages Back Exam Back exam: Present normal inspection Neurological Exam Neurological exam: Present alert and oriented X3 Skin Skin exam: Present intact and warm OBJ DATA Labs CBC & Chem 7: 04/06/20 05:13 04/06/20 05:13 Labs: Abnormal Lab Results 04/06/20 04/06/20 04/05/20 05:13 05:13 05:10 Neut % (Auto) Lymph % (Auto) 12.3 L Lymph # (Auto) 1.02 L Absolute Neutrophils Chloride 95 L 95 L Carbon Dioxide 35 H 33 H Glucose 107 H Calcium 8.2 L 8.1 L AST 50 H 45 H ALT 53 H 41 H Lactate Dehydrogenase 243 H 246 H C-Reactive Protein Albumin 3.1 L Albumin/Globulin Ratio 04/05/20 04/04/20 04/04/20 05:10 05:41 05:41 Neut % (Auto) 85.2 H Lymph % (Auto) 7.8 L Lymph # (Auto) 0.74 L Absolute Neutrophils 8.03 H Chloride Carbon Dioxide Glucose 109 H Calcium 8.3 L AST ALT Lactate Dehydrogenase 281 H C-Reactive Protein 2.00 H Albumin 2.8 L Albumin/Globulin Ratio 0.8 L 04/04/20 05:41 Neut % (Auto) Lymph % (Auto) 11.5 L Lymph # (Auto) 0.90 L Absolute Neutrophils Chloride Carbon Dioxide Glucose Calcium AST ALT Lactate Dehydrogenase C-Reactive Protein Albumin Albumin/Globulin Ratio Meds: Medications Acetaminophen (Tylenol) 650 mg PO Q4-6HP PRN; Protocol PRN Reason: Per Pain Protocol/Fever > 101 Last Admin: 04/04/20 09:30 Dose: 650 mg Documented by: Bacitracin (Bacitracin Topical Oint) 1 dose TOPICAL BID [facility] Last Admin: 04/06/20 09:29 Dose: Not Given Documented by: Bisacodyl (Dulcolax) 10 mg TX Q2-3DAYS PRN PRN Reason: Constipation Docusate Sodium (Colace) 100 mg PO BID [facility] Last Admin: 04/06/20 08:53 Dose: Not Given Documented by: Doxycycline Hyclate (Doxycycline Hyclate) 100 mg PO BID [facility] Guaifenesin/Codeine Phosphate (Robitussin Ac) 10 ml PO Q4HP PRN PRN Reason: Cough Heparin Sodium (Porcine) (Heparin) 5,000 unit SQ Q12 [facility] Last Admin: 04/06/20 08:53 Dose: Not Given Documented by: Potassium Chloride 40 meq/ (Dextrose) 520 mls @ 130 mls/hr IV UD PRN PRN Reason: K+ = or < 3.5 Acetaminophen (Ofirmev) 650 mg in 65 mls @ 130 mls/hr IV Q6HP PRN; Protocol PRN Reason: Per Pain Protocol/Fever > 101 Magnesium Sulfate (Magnesium Sulfate) 2 gm in 50 mls @ 50 mls/hr IV UD PRN PRN Reason: MG = or < 1.7 Iron Carb/Multivit/[place]/Folic Acid (Multivitamin W/Minerals) 1 tab PO DAILY [facility] Last Admin: 04/06/20 08:45 Dose: 1 tab Documented by: Melatonin (Melatonin 3mg Tablet) 3 mg PO HSP PRN PRN Reason: Insomnia Last Admin: 04/05/20 20:13 Dose: 3 mg Documented by: Metoprolol Succinate (Toprol Xl) 50 mg PO QDAY [facility] Last Admin: 04/06/20 08:44 Dose: 50 mg Documented by: Mupirocin (Bactroban Oint 2%) 1 dose NARES BID [facility] Last Admin: 04/06/20 08:45 Dose: 1 dose Documented by: Ondansetron HCl (Zofran Odt) 4 mg SL Q4-6HP PRN; Protocol PRN Reason: Nausea And Vomiting Ondansetron HCl (Zofran) 4 mg IV Q4-6HP PRN; Protocol PRN Reason: Nausea And Vomiting Polyethylene Glycol (Miralax) 17 gm PO DAILYP PRN PRN Reason: Constipation Potassium Chloride (Kdur) 10 meq PO BIDCC [facility] Last Admin: 04/06/20 18:36 Dose: 10 meq Documented by: Senna/Docusate Sodium (Senna Plus Tablet) 1 tab PO HS [facility] Last Admin: 04/05/20 21:35 Dose: Not Given Documented by: Silver Sulfadiazine (Silvadene) 1 dose TOPICAL DAILY [facility] Last Admin: 04/06/20 09:35 Dose: 1 each Documented by: Sodium Chloride (Saline Flush) 10 ml IV Q8 [facility] Last Admin: 04/06/20 14:03 Dose: Not Given Documented by: Torsemide (Demadex) 20 mg PO BIDD [facility] Last Admin: 04/06/20 15:31 Dose: 20 mg Documented by: A/P Narrative A/P Narrative: Assessment: 79 year old male with chronic lymphedema admitted for bilateral heel wounds and mild cellulitis, started on antibiotics and surgery consulted. Hospital course has been uncomplicated. #Bilateral heel wounds #Cellulitis Debridement of wounds, today, initially on Vancomycin IV and Ceftriaxone, now on PO doxycyline. No evidence of osteomyelitis on xrays, no evidence of vascular insufficiency with arterial doppler. CRP was 2.0, continue wounds cares. Looking into SNF discharge options. #Chronic lymphedema - on home torsemide and potassium supplement. #DVT prophylaxis - heparin SQ Time Spent With Patient Time: Total time spent is greater than 50% in coordination of care (as documented) at patient's floor/unit and/or counseling patient: Total time spent with greater than 50% in coordination of care (as documented) at patient's floor/unit and/or counseling patient:: 25 - 35 minutes QUALITY VTE Deep Vein Thrombosis/Pulmonary Embolism Present on Admission: No
[2020-04-06] MEDS: DOXYCYCLINE HYCLATE 100 MG TABLET.ORL PO SCH (20:51)
[2020-04-06] MEDS: SENNOSIDES/DOCUSATE SODIUM 1 TAB TABLET PO SCH ×2 (20:51→20:58)
[2020-04-07] MEDS: 0.9 % SODIUM CHLORIDE 10 ML SYRINGE IV SCH (06:58)
[2020-04-07] MEDS: POTASSIUM CHLORIDE 10 MEQ TABLET PO SCH (08:26)
[2020-04-07] MEDS: MULTIVIT,THER IRON,CA,FA & MIN 1 TABLET PO SCH (08:27)
[2020-04-07] MEDS: BACITRACIN TOPICAL OINT 15 GM TUBE TOPICAL SCH (08:27)
[2020-04-07] MEDS: METOPROLOL SUCCINATE 50 MG TAB.XL.24H PO SCH (08:27)
[2020-04-07] MEDS: DOCUSATE SODIUM 100 MG CAPSULE PO SCH (08:27)
[2020-04-07] MEDS: TORSEMIDE 10 MG TABLET PO SCH (08:27)
[2020-04-07] MEDS: MUPIROCIN OINT 2% 22GM NARES SCH (08:27)
[2020-04-07] MEDS: HEPARIN 5,000 UNIT/ML VIAL SQ SCH (08:28)
[2020-04-07] MEDS: DOXYCYCLINE HYCLATE 100 MG TABLET.ORL PO SCH (08:33)
[2020-04-07] MEDS: SILVER SULFADIAZINE CREAM.TOP 25GM TOPICAL SCH (08:33)
== END 2020-04-07 14:15 | DRG 264 ==
LOC: MEDSUR 14:44 → ED 14:44 → MEDSUR 19:27
PROVIDERS: ADMIT Internal Medicine; ATTEND Internal Medicine